=== PATIENT | female | born 1955 | race Caucasian/White ===

== ENCOUNTER → 2016-06-30 | Outpatient (REF) | payer MEDICARE, BC ==
[~2016-06-30] MED LIST: AMIT25TA PO; AMLO10TA2 PO; ASPI81TA45 PO; ASPI81TA85 PO; CALTTAB10 PO; CARA1TAB2 PO; CELE-19 PO; CENTTAB PO; CENTTAB47 PO; CLON-412 PO; DRIS50002 PO; FERR325T3 PO; FIBE0.524 PO; FURO20TA2 PO; GABA300C3 PO; HYDR-3713 PO; HYDR-3719 PO; INSULADS SC; NOVOINJ3 SC; OMEP40CA2 PO; PERC5TAB6 PO; PROA1AER INH; ROPI1TAB PO; SENN8.6T8 PO; SIMV20TA2 PO; TIZA4CAP3 PO; TYLE325T5 PO; VITA-130 PO; [UNRECOGNIZED DRUG - OTHER] INH; elavil PO
[2016-06-30 16:30] LABS: FREE T4 1.06 NG/DL (0.76-1.46)
== END ==
LOC: M LABDRAW1 15:42
PROVIDERS: ATTEND Orthopaedic Surgery
DX: M79.642 Pain in left hand (principal); Z79.899 Other long term (current) drug therapy

== ENCOUNTER → 2016-10-20 | Outpatient (CLI) | payer MEDICARE, BC ==
[~2016-10-20] VITALS: Ht 165.1 cm; Wt 97.5 kg
[~2016-10-20] MED LIST changes: +ASPI1TAB PO; +CALC600T57 PO; +GABA-282 PO; -GABA300C3 PO; +INSUH10VL SC; +INSUHUMDS SC; +LIDOCAINE 2% INJ 100 MG/5 ML SDV (FOR ANES.) As Ordered ONE; +NS 1,000 ML IV ONE; +PROPOFOL 500 MG/50 ML VIAL As Ordered ONE; +TOUJ1.2I SC; +TRUL0.5I SC
--- NOTE | 2016-10-20 11:51 | ROOR ---
Patient Name: Britta Perea Procedure Date: 10/20/2016 11:35 AM Date of : 1955 Age: 61 Room: [facility] Gender: Female Note Status: Finalized Procedure: Upper GI endoscopy Indications: Heartburn Providers: Man Weinberg MD Referring MD: RUTH LOFTON JR, MD Requesting Provider: Medicines: Monitored Anesthesia Care Complications: No immediate complications. Procedure: Pre-Anesthesia Assessment: - The heart rate, respiratory rate, oxygen saturations, blood pressure, adequacy of pulmonary ventilation, and response to care were monitored throughout the procedure. The Endoscope was introduced through the mouth, and advanced to the second part of duodenum. The upper GI endoscopy was accomplished without difficulty. The patient tolerated the procedure well. Findings: The Z-line was irregular and was found 40 cm from the incisors. No other significant abnormalities were identified in a careful examination of the stomach. The exam of the duodenum was otherwise normal. Impression: - Z-line irregular, 40 cm from the incisors. - No specimens collected. - The examination was otherwise normal. Recommendation: - Patient has a contact number available for emergencies. The signs and symptoms of potential delayed complications were discussed with the patient. Return to normal activities tomorrow. Written discharge instructions were provided to the patient. - Discharge patient to home. - Follow an antireflux regimen. - Continue present medications. - Return to referring physician. - The findings and recommendations were discussed with the patient's family. Man Weinberg MD Man Weinberg MD 10/20/2016 11:51:11 AM This report has been signed electronically. Number of Addenda: 0 Note Initiated On: 10/20/2016 11:35 AM Estimated Blood Loss: Estimated blood loss: none.
--- NOTE | 2016-10-20 12:13 | ROOR ---
Patient Name: Britta Perea Procedure Date: 10/20/2016 11:51 AM Date of : 1955 Age: 61 Room: [facility] Gender: Female Note Status: Finalized Procedure: Total Colonoscopy to Cecum + Cold Snare Polypectomy Indications: High risk colon cancer surveillance: Personal history of colonic polyps, Last colonoscopy: 2012 Providers: Man Weinberg MD Referring MD: RUTH LOFTON JR, MD Requesting Provider: Medicines: Monitored Anesthesia Care Complications: No immediate complications. Procedure: Pre-Anesthesia Assessment: - The heart rate, respiratory rate, oxygen saturations, blood pressure, adequacy of pulmonary ventilation, and response to care were monitored throughout the procedure. The Colonoscope was introduced through the anus and advanced to the cecum, identified by appendiceal orifice and ileocecal valve. The colonoscopy was performed without difficulty. The patient tolerated the procedure well. The quality of the bowel preparation was excellent. Findings: The perianal and digital rectal examinations were normal. Non-bleeding internal hemorrhoids were found during retroflexion. The hemorrhoids were small and Grade I (internal hemorrhoids that do not prolapse). Multiple small and large-mouthed diverticula were found in the recto-sigmoid colon, sigmoid colon and descending colon. A medium polyp was found at 60 cm proximal to the anus. The polyp was sessile. The polyp was removed with a cold snare. Resection and retrieval were complete. The exam was otherwise without abnormality on direct and retroflexion views. Impression: - Non-bleeding internal hemorrhoids. - Diverticulosis in the recto-sigmoid colon, in the sigmoid colon and in the descending colon. - One medium polyp at 60 cm proximal to the anus, removed with a cold snare. Resected and retrieved. - The examination was otherwise normal on direct and retroflexion views. - The exam was otherwise normal to the cecum. Recommendation: - Patient has a contact number available for emergencies. The signs and symptoms of potential delayed complications were discussed with the patient. Return to normal activities tomorrow. Written discharge instructions were provided to the patient. - Continue present medications. - Await pathology results. - Telephone GI clinic for pathology results in 1 week. - Repeat colonoscopy in 5 years for surveillance based on pathology results. - Return to referring physician. - The findings and recommendations were discussed with the patient's family. Man Weinberg MD Man Weinberg MD 10/20/2016 12:12:40 PM This report has been signed electronically. Number of Addenda: 0 Note Initiated On: 10/20/2016 11:51 AM Estimated Blood Loss: Estimated blood loss: none.
[2016-10-20 12:30] VITALS: BP 124/82
== END | disposition home or self-care (01) ==
LOC: M OPP 09:56
PROVIDERS: ATTEND Internal Medicine Gastroenterology
DX: Z12.11 Encounter for screening for malignant neoplasm of colon (principal); K64.0 First degree hemorrhoids; K57.30 Diverticulosis of large intestine without perforation or abscess without bleeding; D12.4 Benign neoplasm of descending colon; K21.9 Gastro-esophageal reflux disease without esophagitis; K22.8 Other specified diseases of esophagus; E78.00 Pure hypercholesterolemia, unspecified; I10 Essential (primary) hypertension; E11.9 Type 2 diabetes mellitus without complications; J44.9 Chronic obstructive pulmonary disease, unspecified; E66.9 Obesity, unspecified; K82.9 Disease of gallbladder, unspecified; D64.9 Anemia, unspecified; M19.90 Unspecified osteoarthritis, unspecified site; Z96.9 Presence of functional implant, unspecified; G47.30 Sleep apnea, unspecified; Z79.4 Long term (current) use of insulin; Z79.82 Long term (current) use of aspirin; Z87.891 Personal history of nicotine dependence; Z79.899 Other long term (current) drug therapy; Z88.8 Allergy status to other drugs, medicaments and biological substances; Z88.1 Allergy status to other antibiotic agents

== ENCOUNTER → 2016-11-24 | Outpatient (REF) | payer MEDICARE, BC ==
[~2016-11-24] MED LIST changes: -CARA1TAB2 PO; +CARA1TAB6 PO; -CELE-19 PO; +CELE1CAP4 PO; -LIDOCAINE 2% INJ 100 MG/5 ML SDV (FOR ANES.) As Ordered ONE; -NS 1,000 ML IV ONE; +PERC5TAB12 PO; -PERC5TAB6 PO; -PROA1AER INH; +PROAAER10 INH; -PROPOFOL 500 MG/50 ML VIAL As Ordered ONE; -VITA-130 PO; +VITA500T PO
== END ==
LOC: M LAB REF 18:14
PROVIDERS: ATTEND Internal Medicine
DX: M06.9 Rheumatoid arthritis, unspecified (principal)

== ENCOUNTER → 2017-02-09 | Outpatient (CLI) | payer MEDICARE, BC ==
--- NOTE | 2017-02-09 16:35 | REP ---
PA and lateral chest: Comparison is 04/13/2009. The lung baires are clear. The cardiac size is normal The roxy, mediastinum, and bony thorax are unremarkable. Impression: Negative PA and lateral chest. No interval change. If symptoms persist or worsen, consider CT. Signed by Romain Molina MD 02/09/2017 04:25 P
== END ==
LOC: M WUC 14:49
PROVIDERS: ATTEND Nurse Practitioner Family
DX: R05 Cough (principal)

== ENCOUNTER → 2017-11-04 | Outpatient (CLI) | payer MEDICARE, BC | LOC: M WUC 14:16 | DX: Z01.818 Encounter for other preprocedural examination (principal); M19.041 Primary osteoarthritis, right hand | CPT/HCPCS: 71046 ==

== ENCOUNTER → 2018-04-06 | Outpatient (CLI) | payer MEDICARE, BC | LOC: M WUC 08:51 | DX: R05 Cough (principal) | CPT/HCPCS: 71046 ==

== ENCOUNTER 2018-12-13 10:43 | Day surgery (SDC) | payer MEDICARE, BC ==
[~2018-12-13] VITALS: Ht 162.6 cm; Wt 99.1 kg
[~2018-12-13 10:43] MED LIST changes: -AMLO10TA2 PO; +AMLO10TA5 PO; -ASPI1TAB PO; +ASPI81TA26 PO; -DRIS50002 PO; +DRIS50003 PO; -GABA-282 PO; +GABA-843 PO; +MELO15TA28 PO; +MULTCAP PO; +NS 1,000 ML IV ONE; +SENN1TAB36 PO; -SENN8.6T8 PO; +TIZA4CAP PO; -TIZA4CAP3 PO
[2018-12-13] MEDS ORDERED: PROPOFOL 200 MG/20 ML VIAL As Ordered ONE ×2 (12:33→12:50)
[2018-12-13] MEDS ORDERED: LIDOCAINE 2% INJ 100 MG/5 ML SDV (FOR ANES.) As Ordered ONE (12:33)
--- NOTE | 2018-12-13 12:48 | ROOR ---
Patient Name: Britta Perea Procedure Date: 12/13/2018 12:32 PM Date of : 1955 Age: 63 Room: [facility] Gender: Female Note Status: Finalized Procedure: Upper Endoscopy + Biopsies Indications: Heartburn, Failure to respond to medical treatment, Exclusion of Mejia's esophagus Providers: Man Weinberg MD Referring MD: RUTH LOFTON JR, MD Requesting Provider: Medicines: Monitored Anesthesia Care Complications: No immediate complications. Procedure: Pre-Anesthesia Assessment: - The heart rate, respiratory rate, oxygen saturations, blood pressure, adequacy of pulmonary ventilation, and response to care were monitored throughout the procedure. The Endoscope was introduced through the mouth, and advanced to the second part of duodenum. The upper GI endoscopy was accomplished without difficulty. The patient tolerated the procedure well. Findings: The Z-line was irregular and was found 40 cm from the incisors. Multiple biopsies were obtained with cold forceps for evaluation to rule out Mejia's Esophagus randomly at the gastroesophageal junction. A prior Hugo fundoplication was found at the gastroesophageal junction. This was characterized by healthy appearing mucosa. A small amount of food (residue) was found on the greater curvature of the stomach. Biopsies were taken with a cold forceps in the gastric antrum for Helicobacter pylori testing. The exam of the duodenum was otherwise normal. Impression: - Z-line irregular, 40 cm from the incisors. - A Hugo fundoplication was found, characterized by healthy appearing mucosa. - A small amount of food (residue) in the stomach. - Multiple biopsies were obtained at the gastroesophageal junction. - Biopsies were taken with a cold forceps for Helicobacter pylori testing. - The examination was otherwise normal. Recommendation: - Patient has a contact number available for emergencies. The signs and symptoms of potential delayed complications were discussed with the patient. Return to normal activities tomorrow. Written discharge instructions were provided to the patient. - High fiber diet. - Discharge patient to home. - Follow an antireflux regimen. - Continue present medications. - Await pathology results. - Telephone GI clinic for pathology results in 1 week. - Return to referring physician. - The findings and recommendations were discussed with the patient's family. Man Weinberg MD Man Weinberg MD 12/13/2018 12:48:31 PM Electronically signed by Man Weinberg MD Number of Addenda: 0 Note Initiated On: 12/13/2018 12:32 PM Estimated Blood Loss: Estimated blood loss: none.
[2018-12-13 13:05] VITALS: BP 124/69
== END 2018-12-13 13:30 | disposition home or self-care (01) ==
LOC: M OPP 10:43
PROVIDERS: ATTEND Internal Medicine Gastroenterology
DX: K22.8 Other specified diseases of esophagus (principal); R12 Heartburn; Z98.890 Other specified postprocedural states

== ENCOUNTER → 2019-02-28 | Outpatient (CLI) | payer MEDICARE, BC ==
[~2019-02-28] MED LIST changes: -NS 1,000 ML IV ONE; -OMEP40CA2 PO; +OMEP40CA97 PO
--- NOTE | 2019-02-28 10:42 | REP ---
Two-view chest: 02/28/2019. Indication: Chest pain. Comparison: 04/06/2019. Findings: The lungs are clear. There is no pleural effusion or pneumothorax. The cardiac silhouette is unremarkable. Impression: Clear lungs. Electronically Signed by Schuyler Shi DO 02/28/2019 10:35 A
== END ==
LOC: M WUC 10:13
PROVIDERS: ATTEND Internal Medicine
DX: R07.9 Chest pain, unspecified (principal)

== ENCOUNTER → 2019-03-04 | Outpatient (REF) | payer MEDICARE, BC | LOC: M LAB REF 13:16 | PROVIDERS: ATTEND Nurse Practitioner | DX: L02.213 Cutaneous abscess of chest wall (principal) ==

== ENCOUNTER → 2019-03-22 | Outpatient (REF) | payer MEDICARE, BC ==
[~2019-03-22] MED LIST changes: -SIMV20TA2 PO; +SIMV20TA22 PO
== END ==
LOC: M LAB REF 17:29
PROVIDERS: ATTEND Dermatology
DX: L72.0 Epidermal cyst (principal)

== ENCOUNTER → 2019-06-30 | Outpatient (CLI) | payer MEDICARE, BC ==
[~2019-06-30] MED LIST changes: +ISOVUE-370 76% 100ML VIAL (Q9967) As Ordered ONE; +METHACHOLINE KIT (J7674) INH ONE; -ROPI1TAB PO; +ROPI1TAB3 PO
--- NOTE | 2019-06-30 10:10 | PFTRPT ---
Visit Date: 06/30/2019 Referring Doctor: Bernadette Gottlieb Height: 65.00 Inches Weight: 218.00 Lbs BSA: 2.05 Diagnosis: R05 Excellent technical quality. Under protocol, methacholine was administered. At a dose of 2.5 mg or 13.875 CDUs, a 22% decline in the FEV1 was noted. PC of 1.64 is significant. Flow rates did return to baseline post bronchodilator administration. IMPRESSION: Positive methacholine challenge study. MTDD
--- NOTE | 2019-06-30 10:26 | REP ---
Clinical: Follow up abnormal lung findings. Technique: Axial contrast enhanced images from the thoracic inlet to the upper abdomen with coronal and sagittal re-formations. Comparison: 08/13/2018. Findings: The small left upper lobe pulmonary cyst measuring roughly 11 mm likely represent sequelae from prior inflammatory process is unchanged. The structure appears chronic and without significant mural nodule/soft tissue. The remainder of lung baires are well-aerated and clear. No further abnormalities appreciated. No effusion. No pneumothorax. No consolidation, nodule or mass. No significant adenopathy noted. Further evaluation of the mediastinum demonstrates mild atherosclerotic changes to the thoracic aorta without aneurysm or dissection. Atherosclerotic changes to the coronary arteries noted along with epicardial calcifications which remains chronic/stable. Surrounding musculoskeletal structures are intact. Limited upper abdomen demonstrates hepatic steatosis along with stable left adrenal adenoma. Impression: 1. Small cystic area in the left upper lobe remains stable and likely represents chronic change related to prior inflammatory process. 2. No acute mediastinal or pleuroparenchymal process appreciated. 3. Hepatic steatosis. Electronically Signed by Hero Hoff MD 06/30/2019 10:17 A
== END ==
LOC: M RAD 08:49
PROVIDERS: ATTEND Nurse Practitioner Adult Health
DX: R05 Cough (principal)
CPT/HCPCS: 71260; 94070; 95070; J7674; Q9967

== ENCOUNTER → 2019-09-27 | Outpatient (REF) | payer MEDICARE, BC, OTHER ==
[~2019-09-27] MED LIST changes: -ISOVUE-370 76% 100ML VIAL (Q9967) As Ordered ONE; -METHACHOLINE KIT (J7674) INH ONE; +VITA-243 PO; -VITA500T PO
[2019-09-27 13:28] LABS: BASOPHILS 1 % (0-1); EOSINOPHILS 6 % (0-3); LYMPHOCYTES 19 % (16-44); MONOCYTES 2 % (0-5); NEUTROPHILS 72 % (28-66); PLATELET ESTIMATE INCREASED (NORMAL)
== END ==
LOC: M LAB REF 12:30
PROVIDERS: ATTEND Internal Medicine
DX: D72.828 Other elevated white blood cell count (principal)

== ENCOUNTER → 2019-12-15 | Outpatient (CLI) | payer MEDICARE, BC ==
[~2019-12-15] MED LIST changes: -AMLO10TA5 PO; +AMLO1TAB25 PO; -ASPI81TA85 PO; +ASPI81TA86 PO
== END ==
LOC: M LABSMTC 12:20
PROVIDERS: ATTEND Orthopaedic Surgery
DX: Z11.59 Encounter for screening for other viral diseases (principal)
CPT/HCPCS: C9803; U0003

== ENCOUNTER → 2019-12-16 | Outpatient (REF) | payer MEDICARE, BC, OTHER ==
[2020-01-14 01:41] LABS: ATYPICAL LYMPH 1 % (0-5); BASOPHILS 1 % (0-1); EOSINOPHILS 1 % (0-3); GIANT PLATELETS 1+; LYMPHOCYTES 29 % (16-44); MONOCYTES 2 % (0-5); NEUTROPHILS 66 % (28-66); PLATELET ESTIMATE INCREASED (NORMAL)
== END ==
LOC: M LAB REF 13:06
PROVIDERS: ATTEND Internal Medicine
DX: D72.829 Elevated white blood cell count, unspecified (principal)

== ENCOUNTER → 2020-03-16 | Outpatient (CLI) | payer MEDICARE, BC, OTHER ==
[2020-03-16 15:38] LABS: HEMATOCRIT 46.7 % (36.0-47.0); HEMOGLOBIN 14.1 g/dl (12.0-15.5); MEAN CORPUSCULAR HEMOGLOBIN 25.1 pg (27.0-33.0); MEAN CORPUSCULAR HGB CONC 30.2 g/dl (32.0-36.5); MEAN CORPUSCULAR VOLUME 83.2 fl (80.0-96.0); PLATELET COUNT, AUTOMATED 658 10^3/uL (150-450); RED BLOOD COUNT 5.61 10^6/uL (4.00-5.40)
[2020-03-16 15:40] LABS: C REACTIVE PROTEIN QUANTITATIV 1.71 MG/DL (0.00-0.30); RHEUMATOID FACTOR QUANT < 10.0 IU/ML (<15.0)
[2020-03-16 15:50] LABS: WHITE BLOOD COUNT 20.6 10^3/uL (4.0-10.0)
[2020-03-16 16:17] LABS: ERYTHROCYTE SEDIMENTATION RATE 12 mm/hr (0-30)
[2020-03-16 18:01] LABS: BASOPHILS 1 % (0-1); EOSINOPHILS 3 % (0-3); LYMPHOCYTES 24 % (16-44); MONOCYTES 8 % (0-5); NEUTROPHILS 63 % (28-66)
[2020-03-16 18:02] LABS: PLATELET ESTIMATE INCREASED (NORMAL)
[2020-03-16 18:03] LABS: HYPOCHROMASIA 1+
[2020-03-19 19:11] LABS: ANTINUCLEAR ANTIBODIES DIRECT Negative (Negative); Lyme Disease IgG/IgM Antibodie <0.91 ISR (0.00-0.90); Lyme Disease IgM Ab Quantitati <0.80 index (0.00-0.79)
== END ==
LOC: M PLALAB 14:05
PROVIDERS: ATTEND Orthopaedic Surgery
DX: Z47.89 Encounter for other orthopedic aftercare (principal)

== ENCOUNTER → 2020-05-14 | Outpatient (REF) | payer MEDICARE, BC, OTHER ==
[2020-05-14 19:41] LABS: ATYPICAL LYMPH 7 % (0-5); BASOPHILS 1 % (0-1); EOSINOPHILS 2 % (0-3); LYMPHOCYTES 33 % (16-44); NEUTROPHILS 57 % (28-66); PLATELET CLUMPS SMALL AMT; PLATELET ESTIMATE NORMAL (NORMAL)
[2020-05-14 19:42] LABS: ANISOCYTOSIS 1+; OVALOCYTES 1+; POLYCHROMASIA 1+
== END ==
LOC: M LAB REF 16:30
PROVIDERS: ATTEND Physician Assistant Medical
DX: D72.829 Elevated white blood cell count, unspecified (principal)

== ENCOUNTER → 2020-06-06 | Outpatient (CLI) | payer SELFPAY ==
[~2020-06-06] MED LIST changes: -AMIT25TA PO; +AMIT25TA17 PO; +GABA-282 PO; -GABA-843 PO
== END ==
LOC: M LABSMTC 13:37
PROVIDERS: ATTEND Pediatrics
DX: Z20.822 Contact with and (suspected) exposure to COVID-19 (principal)

== ENCOUNTER → 2020-07-03 | Outpatient (CLI) | payer SELFPAY, BC, OTHER | LOC: M LABSMTC 09:33 | PROVIDERS: ATTEND Pediatrics | DX: Z11.52 Encounter for screening for COVID-19 (principal) ==

== ENCOUNTER → 2020-07-06 | Outpatient (REF) | payer MEDICARE, BC, OTHER ==
[2020-07-06 17:39] LABS: ATYPICAL LYMPH 5 % (0-5); BASOPHILS 1 % (0-1); EOSINOPHILS 8 % (0-3); LYMPHOCYTES 35 % (16-44); MONOCYTES 9 % (0-5); NEUTROPHILS 42 % (28-66); PLATELET ESTIMATE INCREASED (NORMAL)
[2020-07-06 17:44] LABS: MICROCYTOSIS 1+
== END ==
LOC: M LAB REF 16:42
PROVIDERS: ATTEND Internal Medicine
DX: D72.829 Elevated white blood cell count, unspecified (principal); E11.21 Type 2 diabetes mellitus with diabetic nephropathy; E11.65 Type 2 diabetes mellitus with hyperglycemia

== ENCOUNTER → 2020-07-11 | Outpatient (CLI) | payer MEDICARE, BC ==
--- NOTE | 2020-07-11 10:31 | REP ---
INDICATION: ABNORMAL FINDING OF LUNG FIELD COMPARISON: 06/30/2019, 08/13/2018 TECHNIQUE: Axial noncontrast images from the thoracic inlet to the upper abdomen with coronal and sagittal reformations. This CT examination was performed using the following dose reduction techniques: Automated exposure control, adjustment of mA and/or kv according to the patient's size, and use of iterative reconstruction technique. FINDINGS: The bilateral lung baires are relatively well aerated and essentially clear without consolidation, significant nodule, or mass lesion. A small chronic cavitary lesion in the left upper lobe measures roughly 12 mm and remains stable-consistent with small chronic postinflammatory pneumatocele. Very small scattered non solid ground-glass densities measure up to 6 mm and are similar to prior examination without increase in size, conspicuity, or number. No effusion. No pneumothorax. Tracheobronchial tree is patent. No significant adenopathy. Mediastinum demonstrates stable atherosclerotic changes to the thoracic aorta and coronary arteries without aortic aneurysm or cardiomegaly. No pericardial effusion. Surrounding musculoskeletal structures are intact and without acute osseous abnormality. IMPRESSION: Stable chronic benign appearing changes. No acute mediastinal or pleuroparenchymal process appreciated <Electronically signed by Hero Hoff > 07/11/20 [id number]
== END ==
LOC: M RAD 09:31
PROVIDERS: ATTEND Nurse Practitioner Adult Health
DX: R91.8 Other nonspecific abnormal finding of lung field (principal)

== ENCOUNTER → 2020-08-02 | Outpatient (REF) | payer MEDICARE, BC | LOC: M LAB REF 11:14 | PROVIDERS: ATTEND Internal Medicine | DX: E11.21 Type 2 diabetes mellitus with diabetic nephropathy (principal); E11.65 Type 2 diabetes mellitus with hyperglycemia ==

== ENCOUNTER → 2020-11-01 | Outpatient (REF) | payer MEDICARE, BC ==
[~2020-11-01] MED LIST changes: +OMEP40CA4 PO; -OMEP40CA97 PO
== END ==
LOC: M LAB REF 12:23
PROVIDERS: ATTEND Internal Medicine
DX: E11.21 Type 2 diabetes mellitus with diabetic nephropathy (principal)

== ENCOUNTER → 2020-11-02 | Outpatient (CLI) | payer MEDICARE, BC ==
--- NOTE | 2020-11-02 10:03 | REPMRS ---
Patient History The patient states she has not had a clinical breast exam in over a year. Patient is postmenopausal. No known family history of cancer. Took hormonal contraceptives for 5 years. Moderna vaccine 07/20/20 left arm. 08/20/20 left arm. Patient states no breast complaints today. Patient has signed MRS History Sheet. Digital Woman Screen Mammo: November 02, 2020 - Exam #: [id number] Bilateral CC and MLO view(s) were taken. Technologist: RT Amee Prior study comparison: October 18, 2019, bilateral digital mammo screening bilat, performed at [facility]. July 11, 2018, bilateral digital mammo screening bilat, performed at [facility]. July 20, 2017, bilateral digital mammo screening bilat, performed at [facility]. FINDINGS: There are scattered fibroglandular densities. The Volpara volumetric breast density category is:B. There has been no change in the appearance of the mammogram from the prior studies. There is a mild amount of scattered fibroglandular density which is fairly symmetric. There is no interval development of dominant mass, architectural distortion, or grouped microcalcification suggestive of malignancy. 3-D tomosynthesis shows no additional findings. Assessment: BI-RADS/ACR category 1 mammogram. Negative Mammogram. Recommendation Routine screening mammogram of both breasts in 1 year (for women over age 40). This patient's [facility] Lifetime Breast Cancer Risk is estimated at 4.4 %. This mammogram was interpreted with the aid of an FDA-approved computer-aided dectection system. Electronically Signed By: Gonzalo Trimble MD 11/02/20 [id number]
--- NOTE | 2020-11-02 10:52 | DEXAMM ---
INDICATION: OSTEOPOROSIS. COMPARISON: Comparison studies are from August 13, 2018 and July 06, 2015.. TECHNIQUE: Bone density was measured using dual-energy x-ray absorptionmetry (DEXA). FINDINGS: AP SPINE L1-L4 BMD 1.219 g/cm2 Young Adult T-Score 0.2 Age Matched Z-Score 21.7. LT FEMUR, TOTAL BMD 0.987 g/cm2 Young Adult T-Score -0.2 Age Matched Z-Score 1.0. LT NECK BMD 0.939 g/cm2 Young Adult T-Score -0.7 Age Matched Z-Score 0.7. RT FEMUR, TOTAL BMD 0.946 g/cm2 Young Adult T-Score -0.5 Age Matched Z-Score 0.7. RT NECK BMD 0.964 g/cm2 Young Adult T-Score -0.5 Age Matched Z-Score 0.9. IMPRESSION: There is normal bone density of the spine. There is normal bone density of the left hip. There is normal bone density of the right hip. The density of the spine has increased 11.4% since the initial exam on July 06, 2015. The density of the spine increased 11.5% since most recent exam on August 13, 2018. The density of the left hip has increased 4.9% since initial exam on July 06, 2015. The density of the left hip has decreased 1.7% since most recent exam on June 15, 2018. The density of the right hip has increased 1.1% since the initial exam on July 06, 2015. The density of the right hip has decreased 14.1% since the most recent exam on August 13, 2018. FOLLOW-UP: Recommendation for the next bone density exam: 2 years. <Electronically signed by Gonzalo Trimble > 11/02/20 [id number]
== END ==
LOC: M WHC 08:29
PROVIDERS: ATTEND Internal Medicine
DX: Z12.31 Encounter for screening mammogram for malignant neoplasm of breast (principal); Z13.820 Encounter for screening for osteoporosis; Z78.0 Asymptomatic menopausal state

== ENCOUNTER → 2021-04-01 | Outpatient (REF) | payer MEDICARE, BC | LOC: M LAB REF 13:49 | PROVIDERS: ATTEND Physician Assistant | DX: L72.9 Follicular cyst of the skin and subcutaneous tissue, unspecified (principal) | CPT/HCPCS: 87070; 87077; 87186; G0463 ==

== ENCOUNTER → 2021-04-22 | Outpatient (REF) | payer MEDICARE, BC ==
[2021-04-22 19:47] LABS: ATYPICAL LYMPH 3 % (0-5); BASOPHILS 2 % (0-1); EOSINOPHILS 6 % (0-3); LYMPHOCYTES 32 % (16-44); MONOCYTES 9 % (0-5); NEUTROPHILS 48 % (28-66)
[2021-04-22 19:48] LABS: ANISOCYTOSIS 1+; PLATELET ESTIMATE INCREASED (NORMAL)
[2021-04-22 19:49] LABS: MICROCYTOSIS 1+
== END ==
LOC: M LAB REF 16:31
PROVIDERS: ATTEND Internal Medicine
DX: D72.829 Elevated white blood cell count, unspecified (principal)

== ENCOUNTER → 2021-05-10 | Outpatient (REF) | LOC: M LABSMTC 10:05 | PROVIDERS: ATTEND Pediatrics | DX: Z11.52 Encounter for screening for COVID-19 (principal); Z20.822 Contact with and (suspected) exposure to COVID-19 ==

== ENCOUNTER → 2021-07-24 | Outpatient (REF) | payer MEDICARE, BC | LOC: M LAB REF 12:12 | PROVIDERS: ATTEND Internal Medicine | DX: Z22.322 Carrier or suspected carrier of Methicillin resistant Staphylococcus aureus (principal) ==

== ENCOUNTER → 2021-08-09 | Outpatient (REF) | payer MEDICARE, BC ==
[2021-08-09 19:17] LABS: BASOPHILS 2 % (0-1); EOSINOPHILS 6 % (0-3); LYMPHOCYTES 33 % (16-44); MONOCYTES 3 % (0-5); NEUTROPHILS 56 % (28-66)
[2021-08-09 19:18] LABS: ANISOCYTOSIS 1+; MICROCYTOSIS 1+; PLATELET ESTIMATE INCREASED (NORMAL); TARGET CELLS 1+
== END ==
LOC: M LAB REF 16:21
PROVIDERS: ATTEND Internal Medicine
DX: E11.21 Type 2 diabetes mellitus with diabetic nephropathy (principal); D72.829 Elevated white blood cell count, unspecified

== ENCOUNTER → 2021-08-26 | Outpatient (CLI) | payer MEDICARE, BC | LOC: M WUC 13:58 | PROVIDERS: ATTEND Internal Medicine | DX: R10.9 Unspecified abdominal pain (principal); R11.2 Nausea with vomiting, unspecified ==

== ENCOUNTER → 2021-09-13 | Outpatient (REF) | payer MEDICARE, BC ==
[2021-09-13 20:14] LABS: ATYPICAL LYMPH 2 % (0-5); BASOPHILS 2 % (0-1); EOSINOPHILS 2 % (0-3); LYMPHOCYTES 28 % (16-44); MONOCYTES 3 % (0-5); NEUTROPHILS 63 % (28-66); PLATELET ESTIMATE INCREASED (NORMAL)
[2021-09-13 20:16] LABS: TOXIC GRANULATION 1+
[2021-09-13 20:17] LABS: MICROCYTOSIS 2+
== END ==
LOC: M LAB REF 16:25
PROVIDERS: ATTEND Physician Assistant Medical
DX: D72.9 Disorder of white blood cells, unspecified (principal)

== ENCOUNTER → 2021-09-30 | Outpatient (CLI) | payer MEDICARE, BC ==
[~2021-09-30] MED LIST changes: +GASTROGRAFIN SOLUTION 30ML (Q9963) As Ordered ONE; +ISOVUE-370 76% 100ML VIAL As Ordered ONE
== END ==
LOC: M RAD 14:09
PROVIDERS: ATTEND Physician Assistant Medical
DX: R11.0 Nausea (principal); K76.0 Fatty (change of) liver, not elsewhere classified; N28.1 Cyst of kidney, acquired
CPT/HCPCS: 74178; Q9963; Q9967

== ENCOUNTER → 2021-10-11 | Outpatient (REF) | payer MEDICARE, BC ==
[~2021-10-11] MED LIST changes: -GASTROGRAFIN SOLUTION 30ML (Q9963) As Ordered ONE; -ISOVUE-370 76% 100ML VIAL As Ordered ONE
[2021-10-11 18:56] LABS: TOTAL PROTEIN 7.9 GM/DL (6.4-8.2)
[2021-10-15 09:47] LABS: ALBUMIN 4.08 GM/DL (3.29-5.55); ALBUMIN % 51.7 % (55.8-66.1); ALPHA-1-GLOBULIN % 4.1 % (2.9-4.9); ALPHA-1-GLOBULINS 0.32 GM/DL (0.17-0.41); ALPHA-2-GLOBULINS 1.11 GM/DL (0.42-0.99); ALPHA-2-GLOBULINS % 14.1 % (7.1-11.8); BETA-1-GLOBULINS 0.62 GM/DL (0.28-0.60); BETA-1-GLOBULINS % 7.8 % (4.7-7.2); BETA-2-GLOBULINS 0.48 GM/DL (0.19-0.55); BETA-2-GLOBULINS % 6.1 % (3.2-6.5); GAMMA GLOBULIN % 16.2 % (11.1-18.8); GAMMA GLOBULINS 1.28 GM/DL (0.65-1.58)
== END ==
LOC: M LAB REF 17:07
PROVIDERS: ATTEND Physician Assistant Medical
DX: R76.8 Other specified abnormal immunological findings in serum (principal)

== ENCOUNTER → 2021-10-23 | Outpatient (CLI) | payer MEDICARE, BC | LOC: M PLAIMG 06:59 | PROVIDERS: ATTEND Physician Assistant Medical | DX: S34.114A Complete lesion of L4 level of lumbar spinal cord, initial encounter (principal) ==

== ENCOUNTER → 2021-11-07 | Outpatient (CLI) | payer MEDICARE, BC | LOC: M WHC 06:40 | PROVIDERS: ATTEND Internal Medicine | DX: Z12.31 Encounter for screening mammogram for malignant neoplasm of breast (principal) ==

== ENCOUNTER → 2021-11-07 | Outpatient (CLI) | payer MEDICARE, BC | LOC: M RAD 13:42 | PROVIDERS: ATTEND Physician Assistant Medical | DX: Z12.31 Encounter for screening mammogram for malignant neoplasm of breast (principal); N28.1 Cyst of kidney, acquired; N83.201 Unspecified ovarian cyst, right side; D41.01 Neoplasm of uncertain behavior of right kidney ==

== ENCOUNTER → 2021-11-27 | Outpatient (REF) | payer MEDICARE, BC | LOC: M LAB REF 12:13 | PROVIDERS: ATTEND Internal Medicine | DX: M89.9 Disorder of bone, unspecified (principal); E11.21 Type 2 diabetes mellitus with diabetic nephropathy ==

== ENCOUNTER → 2021-12-02 | Outpatient (REF) | payer MEDICARE, BC | LOC: M LAB REF 11:28 | PROVIDERS: ATTEND Internal Medicine | DX: N28.1 Cyst of kidney, acquired (principal) ==

== ENCOUNTER → 2021-12-03 | Outpatient (REF) | payer MEDICARE, BC | LOC: M LAB REF 12:07 | PROVIDERS: ATTEND Internal Medicine | DX: N28.1 Cyst of kidney, acquired (principal) ==

== ENCOUNTER → 2021-12-04 | Outpatient (REF) | payer MEDICARE, BC | LOC: M LAB REF 16:24 | PROVIDERS: ATTEND Internal Medicine | DX: M89.9 Disorder of bone, unspecified (principal); N28.1 Cyst of kidney, acquired ==

== ENCOUNTER → 2021-12-10 | Outpatient (REF) | payer MEDICARE, BC ==
[2021-12-10 13:33] LABS: APPEARANCE, URINE CLEAR (CLEAR); BACTERIA, URINE AUTO NEGATIVE (NEGATIVE); BILIRUBIN, URINE AUTO NEGATIVE (NEGATIVE); BLOOD, URINE BLOOD NEGATIVE (NEGATIVE); COLOR, URINE YELLOW (YELLOW); GLUCOSE, URINE (UA) AUTO 3+ mg/dL (NEGATIVE); KETONE, URINE AUTO NEGATIVE (NEGATIVE); LEUKOCYTE ESTERASE, URINE AUTO NEGATIVE (NEGATIVE); NITRITE, URINE AUTO NEGATIVE (NEGATIVE); PROTEIN, URINE AUTO NEGATIVE (NEGATIVE); RBC, URINE AUTO 1 /HPF (0-3); SPECIFIC GRAVITY URINE AUTO 1.026 (1.002-1.035); SQUAMOUS EPITHELIAL CELL UR AU 1 /HPF (0-6); UROBILINOGEN, URINE AUTO 0.2 mg/dL (0.0-2.0); WBC, URINE AUTO 0 /HPF (0-3)
== END ==
LOC: M SMT 12:51
PROVIDERS: ATTEND Physician Assistant
DX: R39.89 Other symptoms and signs involving the genitourinary system (principal)

== ENCOUNTER 2021-12-22 07:58 | Emergency (ER) | payer MEDICARE, BC ==
[~2021-12-22] VITALS: Ht 162.6 cm; Wt 91.4 kg
[2021-12-22 10:47] LABS: MEAN CORPUSCULAR HEMOGLOBIN 21.5 pg (27.0-33.0); MEAN CORPUSCULAR HGB CONC 29.5 g/dl (32.0-36.5); MEAN CORPUSCULAR VOLUME 72.6 fl (80.0-96.0); PLATELET COUNT, AUTOMATED 726 10^3/uL (150-450); RED BLOOD COUNT 6.06 10^6/uL (4.00-5.40); WHITE BLOOD COUNT 27.3 10^3/uL (4.0-10.0)
[2021-12-22 11:11] LABS: ERYTHROCYTE SEDIMENTATION RATE 18 mm/hr (0-30)
[2021-12-22 11:15] LABS: ATYPICAL LYMPH 4 % (0-5); BASOPHILS 1 % (0-1); EOSINOPHILS 1 % (0-3); LYMPHOCYTES 17 % (16-44); MONOCYTES 9 % (0-5); NEUTROPHILS 67 % (28-66)
[2021-12-22 11:16] LABS: PLATELET CLUMPS SMALL AMT; PLATELET ESTIMATE INCREASED (NORMAL)
[2021-12-22 11:17] LABS: ANISOCYTOSIS 2+; OVALOCYTES 1+; POIKILOCYTOSIS 1+
[2021-12-22 11:18] LABS: BLOOD UREA NITROGEN 19 MG/DL (7-18); C REACTIVE PROTEIN QUANTITATIV 2.29 MG/DL (0.00-0.30); CALCIUM LEVEL 9.5 MG/DL (8.8-10.2); CARBON DIOXIDE LEVEL 28 MEQ/L (21-32); CHLORIDE LEVEL 106 MEQ/L (98-107); CREATININE FOR GFR 0.65 MG/DL (0.55-1.30); GLOMERULAR FILTRATION RATE > 60.0 (>45); GLUCOSE, FASTING 97 MG/DL (70-100); POLYCHROMASIA 1+; POTASSIUM SERUM 4.6 MEQ/L (3.5-5.1); SODIUM LEVEL 139 MEQ/L (136-145)
[2021-12-22] MEDS ORDERED: NORCO, ANEXSIA 5/325MG TABLET (HYDROcodone/ACETAMINOPHEN) PO ONE (12:45)
[2021-12-22] MEDS ORDERED: HYDR-3713 PO (14:15)
[2021-12-22 14:28] VITALS: BP 145/65
== END 2021-12-22 14:29 | disposition home or self-care (01) ==
LOC: M ED 07:58
DX: M79.661 Pain in right lower leg (principal); E11.9 Type 2 diabetes mellitus without complications; I10 Essential (primary) hypertension; G47.33 Obstructive sleep apnea (adult) (pediatric); K21.9 Gastro-esophageal reflux disease without esophagitis; G89.29 Other chronic pain; Z86.718 Personal history of other venous thrombosis and embolism; Z88.1 Allergy status to other antibiotic agents; Z79.899 Other long term (current) drug therapy; Z79.82 Long term (current) use of aspirin; Z79.4 Long term (current) use of insulin

== ENCOUNTER → 2022-02-19 | Outpatient (CLI) | payer MEDICARE, BC ==
[~2022-02-19] MED LIST changes: +ALBU8.5H INH; +MULT-90 PO; +ONDA-83 PO; +TRAZ-186 PO
== END ==
LOC: M WHC 08:20
PROVIDERS: ATTEND Specialist
DX: N83.201 Unspecified ovarian cyst, right side (principal)

== ENCOUNTER → 2022-03-04 | Outpatient (REF) | payer MEDICARE, BC ==
[2022-03-06 14:08] LABS: FRUCTOSAMINE 309 umol/L (0-285); SSA SJOGRENS A <0.2 AI (0.0-0.9); SSB SJOGRENS B <0.2 AI (0.0-0.9)
== END ==
LOC: M LAB REF 16:11
PROVIDERS: ATTEND Internal Medicine
DX: H04.129 Dry eye syndrome of unspecified lacrimal gland (principal); E11.9 Type 2 diabetes mellitus without complications

== ENCOUNTER → 2022-03-24 | Outpatient (CLI) | payer MEDICARE, BC | LOC: M PLARAD 07:32 | PROVIDERS: ATTEND Internal Medicine Medical Oncology | DX: C48.0 Malignant neoplasm of retroperitoneum (principal) | CPT/HCPCS: 78815; A9552 ==

== ENCOUNTER → 2022-05-18 | Outpatient (CLI) | payer MEDICARE, BC ==
[~2022-05-18] MED LIST changes: +AMMO12CR7 TOP; +CELE1CAP7 PO; +CLIN1GEL22 TOP; +CVS500CA5 PO; +DOCU100C16 PO; +ERGO500029 PO; +FAMO40TA3 PO; +HUMA100I5 SC; +HYDR500C3 PO; +JARD1TAB PO; +MAGN400T2 PO; +MONT10TA97 PO; +NITR2OI TOP; +OXYB5TAB10 PO; +POTA10CA33 PO; +SUCR1TAB56 PO; +SYMB16INH INH; +TRAZ-252 PO
== END ==
LOC: M LABSMTC 10:25
PROVIDERS: ATTEND Internal Medicine Gastroenterology
DX: Z01.812 Encounter for preprocedural laboratory examination (principal); Z20.822 Contact with and (suspected) exposure to COVID-19

== ENCOUNTER 2022-05-21 06:44 | Day surgery (SDC) | payer MEDICARE, BC ==
[~2022-05-21] VITALS: Ht 160 cm; Wt 88.0 kg
[~2022-05-21 06:44] MED LIST changes: +NS 1,000 ML IV ONE
[2022-05-21] MEDS ORDERED: LIDOCAINE 2% 100MG/5ML SDV (FOR ANES.) As Ordered ONE (07:54)
[2022-05-21] MEDS ORDERED: fentaNYL 100 MCG/2 ML INJECTION As Ordered ONE (07:54)
[2022-05-21] MEDS ORDERED: propofoL 200 MG/20 ML VIAL As Ordered ONE (07:54)
[2022-05-21 08:48] VITALS: BP 137/63
== END 2022-05-21 08:59 | disposition home or self-care (01) ==
LOC: M OPP 06:44
PROVIDERS: ATTEND Internal Medicine Gastroenterology
DX: K64.0 First degree hemorrhoids (principal); K57.30 Diverticulosis of large intestine without perforation or abscess without bleeding; K22.70 Barrett's esophagus without dysplasia; I10 Essential (primary) hypertension; E78.5 Hyperlipidemia, unspecified; E10.9 Type 1 diabetes mellitus without complications; K21.9 Gastro-esophageal reflux disease without esophagitis; M19.90 Unspecified osteoarthritis, unspecified site; J45.909 Unspecified asthma, uncomplicated; G47.30 Sleep apnea, unspecified; Z87.891 Personal history of nicotine dependence; Z88.1 Allergy status to other antibiotic agents; Z79.4 Long term (current) use of insulin; Z79.82 Long term (current) use of aspirin; Z79.84 Long term (current) use of oral hypoglycemic drugs; Z79.899 Other long term (current) drug therapy

== ENCOUNTER → 2022-06-06 | Outpatient (REF) | payer MEDICARE, BC ==
[~2022-06-06] MED LIST changes: -NS 1,000 ML IV ONE
== END ==
LOC: M LAB REF 12:22
PROVIDERS: ATTEND Internal Medicine
DX: E11.40 Type 2 diabetes mellitus with diabetic neuropathy, unspecified (principal)

== ENCOUNTER → 2022-06-12 | Outpatient (REF) | payer MEDICARE, BC | LOC: M LAB REF 08:47 | PROVIDERS: ATTEND Internal Medicine | DX: D72.829 Elevated white blood cell count, unspecified (principal); D48.3 Neoplasm of uncertain behavior of retroperitoneum ==

== ENCOUNTER → 2022-07-23 | Outpatient (CLI) | payer MEDICARE, BC ==
[~2022-07-23] MED LIST changes: +BACL10TA2; +GASTROGRAFIN SOLUTION 30ML As Ordered ONE; +ISOVUE-370 76% 100ML VIAL As Ordered ONE
== END ==
LOC: M RAD 10:46
PROVIDERS: ATTEND Internal Medicine
DX: D14.30 Benign neoplasm of unspecified bronchus and lung (principal); R91.1 Solitary pulmonary nodule; M51.36 Other intervertebral disc degeneration, lumbar region
CPT/HCPCS: 71260; 74177; Q9963; Q9967

== ENCOUNTER → 2022-10-01 | Outpatient (REF) | payer MEDICARE, BC ==
[~2022-10-01] MED LIST changes: -BACL10TA2; -GASTROGRAFIN SOLUTION 30ML As Ordered ONE; -ISOVUE-370 76% 100ML VIAL As Ordered ONE
== END ==
LOC: M LAB REF 12:35
PROVIDERS: ATTEND Internal Medicine
DX: E11.40 Type 2 diabetes mellitus with diabetic neuropathy, unspecified (principal)

== ENCOUNTER → 2022-11-04 | Outpatient (REF) | payer MEDICARE, BC ==
[~2022-11-04] MED LIST changes: +BACL10TA2; -POTA10CA33 PO; +POTA10CA60 PO
== END ==
LOC: M LAB REF 16:39
PROVIDERS: ATTEND Internal Medicine
DX: M48.062 Spinal stenosis, lumbar region with neurogenic claudication (principal)

== ENCOUNTER → 2022-11-05 | Outpatient (CLI) | payer MEDICARE, BC | LOC: M RAD 12:04 | PROVIDERS: ATTEND Nurse Practitioner | DX: M79.604 Pain in right leg (principal) ==

== ENCOUNTER → 2022-12-11 | Outpatient (REF) | payer MEDICARE, BC ==
[~2022-12-11] MED LIST changes: -AMIT25TA17 PO; +AMIT25TA19 PO; -ROPI1TAB3 PO; +ROPI1TAB73 PO
[2022-12-11 11:54] LABS: INR 0.91; PROTHROMBIN TIME 12.5 SECONDS (12.5-14.5)
[2022-12-11 11:56] LABS: PARTIAL THROMBOPLASTIN TIME 29.9 SECONDS (24.8-34.2)
== END ==
LOC: M LAB REF 11:40
PROVIDERS: ATTEND Internal Medicine
DX: Z01.810 Encounter for preprocedural cardiovascular examination (principal)

== ENCOUNTER → 2022-12-29 | Outpatient (REF) | payer MEDICARE, BC | LOC: M LAB REF 16:39 | PROVIDERS: ATTEND Internal Medicine | DX: E11.40 Type 2 diabetes mellitus with diabetic neuropathy, unspecified (principal) ==

== ENCOUNTER → 2023-03-24 | Outpatient (REF) | payer MEDICARE, BC ==
[~2023-03-24] MED LIST changes: -CELE1CAP7 PO; +CELE1CAP99 PO; +METH-1164; -OXYB5TAB10 PO; +OXYB5TAB11 PO; +PREG150C2
[2023-03-24 17:31] LABS: APPEARANCE, URINE HAZY (CLEAR); BACTERIA, URINE AUTO NEGATIVE (NEGATIVE); BILIRUBIN, URINE AUTO NEGATIVE (NEGATIVE); BLOOD, URINE BLOOD NEGATIVE (NEGATIVE); COLOR, URINE YELLOW (YELLOW); GLUCOSE, URINE (UA) AUTO 3+ mg/dL (NEGATIVE); KETONE, URINE AUTO NEGATIVE (NEGATIVE); LEUKOCYTE ESTERASE, URINE AUTO TRACE (NEGATIVE); NITRITE, URINE AUTO NEGATIVE (NEGATIVE); PROTEIN, URINE AUTO NEGATIVE (NEGATIVE); RBC, URINE AUTO 1 /HPF (0-3); SPECIFIC GRAVITY URINE AUTO 1.031 (1.002-1.035); SQUAMOUS EPITHELIAL CELL UR AU 4 /HPF (0-6); UROBILINOGEN, URINE AUTO 0.2 mg/dL (0.0-2.0); WBC, URINE AUTO 9 /HPF (0-3)
== END ==
LOC: M SMT 16:49
PROVIDERS: ATTEND Physician Assistant
DX: R39.89 Other symptoms and signs involving the genitourinary system (principal)

== ENCOUNTER → 2023-05-06 | Outpatient (REF) | payer MEDICARE, BC | LOC: M LAB REF 16:41 | PROVIDERS: ATTEND Internal Medicine | DX: E11.40 Type 2 diabetes mellitus with diabetic neuropathy, unspecified (principal) ==

== ENCOUNTER → 2023-06-04 | Outpatient (REF) | payer MEDICARE, BC ==
[2023-06-04 13:27] LABS: INR 1.05; PARTIAL THROMBOPLASTIN TIME 28.5 SECONDS (24.8-34.2); PROTHROMBIN TIME 13.4 SECONDS (12.5-14.5)
== END ==
LOC: M LAB REF 12:00
PROVIDERS: ATTEND Internal Medicine
DX: Z01.818 Encounter for other preprocedural examination (principal); Z79.01 Long term (current) use of anticoagulants

== ENCOUNTER → 2023-07-01 | Outpatient (REF) | payer MEDICARE, BC ==
[~2023-07-01] MED LIST changes: +HYDR-4514 PO; -METH-1164; +METH-1164 PO; +MYRB25TA PO; -OXYB5TAB11 PO; +OXYB5TAB14 PO; +PREG75CA3 PO; +TRAZ-257 PO
[2023-07-01 13:00] LABS: RSV AMPLIFICATION NEGATIVE (NEGATIVE)
== END ==
LOC: M LAB REF 11:51
PROVIDERS: ATTEND Nurse Practitioner Family
DX: R53.83 Other fatigue (principal)

== ENCOUNTER 2023-07-02 11:35 | Inpatient (IN) | payer MEDICARE, BC ==
[~2023-07-02] VITALS: Ht 160 cm; Wt 83.5 kg
[~2023-07-02 11:35] MED LIST changes: -HYDR-4514 PO; -MYRB25TA PO; -PREG75CA3 PO; -TRAZ-257 PO
[2023-07-02] MEDS: NS IV STA (12:43)
[2023-07-02 12:54] LABS: APPEARANCE, URINE CLEAR (CLEAR); BACTERIA, URINE AUTO 1+ (NEGATIVE); BILIRUBIN, URINE AUTO NEGATIVE (NEGATIVE); BLOOD, URINE BLOOD NEGATIVE (NEGATIVE); COLOR, URINE YELLOW (YELLOW); GLUCOSE, URINE (UA) AUTO 3+ mg/dL (NEGATIVE); KETONE, URINE AUTO NEGATIVE (NEGATIVE); LEUKOCYTE ESTERASE, URINE AUTO 1+ (NEGATIVE); NITRITE, URINE AUTO NEGATIVE (NEGATIVE); PROTEIN, URINE AUTO NEGATIVE (NEGATIVE); RBC, URINE AUTO 2 /HPF (0-3); SPECIFIC GRAVITY URINE AUTO 1.029 (1.002-1.035); SQUAMOUS EPITHELIAL CELL UR AU 1 /HPF (0-6); UROBILINOGEN, URINE AUTO 0.2 mg/dL (0.0-2.0); WBC, URINE AUTO 66 /HPF (0-3)
[2023-07-02 12:54] LABS: BASO # 0.1 10^3/uL (0.0-0.2); BASO % 0.4 % (0.0-1.0); EOS # 0.1 10^3/uL (0.0-0.5); EOS % 0.8 % (0.0-3.0); HEMATOCRIT 32.3 % (36.0-47.0); LYMPH # 3.1 10^3/uL (1.5-5.0); LYMPH % 20.4 % (24.0-44.0); MEAN CORPUSCULAR HEMOGLOBIN 30.6 pg (27.0-33.0); MEAN CORPUSCULAR VOLUME 98.8 fl (80.0-96.0); MONO # 1.6 10^3/uL (0.0-0.8); MONO % 10.9 % (2.0-8.0); NEUTROPHILS % 66.9 % (36.0-66.0); PLATELET COUNT, AUTOMATED 350 10^3/uL (150-450); RED BLOOD COUNT 3.27 10^6/uL (4.00-5.40)
[2023-07-02 13:02] LABS: ERYTHROCYTE SEDIMENTATION RATE > 130 mm/hr (0-30)
[2023-07-02 13:10] LABS: INR 1.13; PROTHROMBIN TIME 14.2 SECONDS (12.5-14.5)
[2023-07-02 13:11] LABS: PARTIAL THROMBOPLASTIN TIME 35.6 SECONDS (24.8-34.2)
[2023-07-02 13:26] LABS: PROCALCITONIN 0.21 ng/ml
[2023-07-02 13:33] LABS: CK-MB VALUE MASS < 1.0 NG/ML (<3.6)
[2023-07-02 13:34] LABS: CPK CREATINE PHOSPHOKINASE 34 U/L (34-145); MB/CK RELATIVE INDEX 2.94 (< OR =4)
[2023-07-02 13:35] LABS: ALBUMIN 3.1 G/DL (3.2-5.2); ALKALINE PHOSPHATASE 101 U/L (46-116); ALT/SGPT 16 U/L (7.0-40); AST/SGOT 13 U/L (<34); BILIRUBIN,DIRECT 0.2 MG/DL (<0.4); BILIRUBIN,TOTAL 0.4 MG/DL (0.3-1.2); BLOOD UREA NITROGEN 10 MG/DL (9-23); CALCIUM LEVEL 8.7 MG/DL (8.3-10.6); CARBON DIOXIDE LEVEL 27 MMOL/L (20-31); CHLORIDE LEVEL 103 MMOL/L (98-107); GLOMERULAR FILTRATION RATE > 60.0 (>45); GLUCOSE, FASTING 187 MG/DL (74-106); POTASSIUM SERUM 4.6 MMOL/L (3.5-5.1); SODIUM LEVEL 135 MMOL/L (136-145); TOTAL PROTEIN 7.4 G/DL (5.7-8.2)
[2023-07-02 13:36] LABS: AMYLASE < 20 U/L (30-118)
[2023-07-02] MEDS ORDERED: ISOVUE-370 76% 100ML VIAL As Ordered ONE (13:37)
[2023-07-02] MEDS: cefTRIAXone SOD 2 GM in D5W MINI-BAG PLUS 50 ML IV ONE (14:38)
[2023-07-02] MEDS ORDERED: GLUCAGON INJ 1MG VIAL SC PRN (17:00)
[2023-07-02] MEDS ORDERED: GLUCOSE 4GM CHEW TABLET PO PRN (17:00)
[2023-07-02] MEDS ORDERED: DEXTROSE 50% 50ML SYRINGE IV PRN (17:00)
[2023-07-02 17:04] VITALS: BP 128/39; TEMP 99.9; O2SAT 97
[2023-07-02] MEDS: ACETAMINOPHEN TAB 650MG DOSE (2X325MG) PO PRN (17:42)
[2023-07-02] MEDS ORDERED: HYDR-4514 PO (18:41)
[2023-07-02] MEDS ORDERED: HYDR500C3 PO ×2 (18:41)
[2023-07-02] MEDS: INSULIN LISPRO (NovoLOG) PER UNIT SC SCH ×2 (18:43→20:28)
[2023-07-02] MEDS ORDERED: METH-1164 PO (18:45)
[2023-07-02] MEDS ORDERED: FAMO40TA3 PO (18:59)
[2023-07-02] MEDS ORDERED: TRAZ-257 PO (18:59)
[2023-07-02] MEDS ORDERED: MYRB25TA PO (18:59)
[2023-07-02] MEDS ORDERED: PREG75CA3 PO (18:59)
[2023-07-02] MEDS ORDERED: HOME MED LIST COMPLETE! XX SCH (19:05)
[2023-07-02] MEDS ORDERED: PERCOCET 5MG/325MG TAB PO PRN (19:05)
[2023-07-02 20:05] VITALS: BP 121/52; TEMP 99.5; O2SAT 91
[2023-07-02] MEDS: SIMVASTATIN 20 MG TAB PO SCH (20:34)
[2023-07-02] MEDS: methocarbamoL 500 MG TAB PO SCH (20:34)
[2023-07-02] MEDS: rOPINIRole 1MG TAB PO SCH (20:34)
[2023-07-02] MEDS: FAMOTIDINE 20 MG TAB PO SCH (20:34)
[2023-07-02] MEDS: CelecoXIB (CeleBREX) 100 MG CAP PO SCH (20:34)
[2023-07-02] MEDS: PREGABALIN 75 MG CAP(LYRICA) PO SCH (20:34)
[2023-07-02] MEDS: MONTELUKAST 10 MG TAB PO SCH (20:34)
[2023-07-02] MEDS: HYDROXYUREA 500 MG CAP PO SCH (20:34)
[2023-07-02] MEDS: OMEPRAZOLE 20MG CAP PO SCH (20:35)
[2023-07-02] MEDS: traZODone 100 MG TAB PO SCH (20:35)
[2023-07-02] MEDS: NORCO, ANEXSIA 5/325MG TABLET (HYDROcodone/ACETAMINOPHEN) PO PRN (20:38)
[2023-07-02] MEDS: SYMBICORT 160/4.5MCG INHALER 6GM INH SCH (23:07)
[2023-07-03 04:45] VITALS: BP 121/52; TEMP 99.3; O2SAT 95
[2023-07-03 07:01] LABS: BASO % 0.3 % (0.0-1.0); EOS # 0.2 10^3/uL (0.0-0.5); EOS % 1.1 % (0.0-3.0); HEMATOCRIT 30.4 % (36.0-47.0); HEMOGLOBIN 9.5 g/dl (12.0-15.5); LYMPH # 2.3 10^3/uL (1.5-5.0); LYMPH % 15.4 % (24.0-44.0); MEAN CORPUSCULAR HEMOGLOBIN 31.3 pg (27.0-33.0); MEAN CORPUSCULAR HGB CONC 31.3 g/dl (32.0-36.5); MONO # 2.4 10^3/uL (0.0-0.8); MONO % 16.4 % (2.0-8.0); NEUTROPHILS # 9.8 10^3/uL (1.5-8.5); NEUTROPHILS % 66.2 % (36.0-66.0); PLATELET COUNT, AUTOMATED 284 10^3/uL (150-450); RED BLOOD COUNT 3.04 10^6/uL (4.00-5.40); WHITE BLOOD COUNT 14.8 10^3/uL (4.0-10.0)
[2023-07-03 07:18] LABS: BLOOD UREA NITROGEN 9 MG/DL (9-23); CALCIUM LEVEL 8.3 MG/DL (8.3-10.6); CARBON DIOXIDE LEVEL 27 MMOL/L (20-31); CHLORIDE LEVEL 104 MMOL/L (98-107); CREATININE FOR GFR 0.46 MG/DL (0.55-1.30); GLOMERULAR FILTRATION RATE > 60.0 (>45); GLUCOSE, FASTING 134 MG/DL (74-106); POTASSIUM SERUM 4.2 MMOL/L (3.5-5.1); SODIUM LEVEL 136 MMOL/L (136-145)
[2023-07-03] MEDS: cefTRIAXone SOD 2 GM in D5W MINI-BAG PLUS 50 ML IV SCH (13:39)
[2023-07-03 14:10] VITALS: BP 117/48; TEMP 97.7; O2SAT 91
[2023-07-03 22:00] VITALS: BP 139/48; TEMP 100.2; TEMP 101.1; O2SAT 94
[2023-07-03 23:00] VITALS: TEMP 99.1
[2023-07-04 06:08] VITALS: BP 141/63; TEMP 97.8; O2SAT 95
[2023-07-04 06:27] LABS: BASO # 0.1 10^3/uL (0.0-0.2); BASO % 0.4 % (0.0-1.0); EOS # 0.3 10^3/uL (0.0-0.5); EOS % 2.2 % (0.0-3.0); HEMATOCRIT 30.1 % (36.0-47.0); HEMOGLOBIN 9.3 g/dl (12.0-15.5); LYMPH # 2.5 10^3/uL (1.5-5.0); LYMPH % 18.4 % (24.0-44.0); MEAN CORPUSCULAR HEMOGLOBIN 30.6 pg (27.0-33.0); MEAN CORPUSCULAR HGB CONC 30.9 g/dl (32.0-36.5); MONO # 2.1 10^3/uL (0.0-0.8); MONO % 15.1 % (2.0-8.0); NEUTROPHILS # 8.7 10^3/uL (1.5-8.5); PLATELET COUNT, AUTOMATED 230 10^3/uL (150-450); RED BLOOD COUNT 3.04 10^6/uL (4.00-5.40); WHITE BLOOD COUNT 13.7 10^3/uL (4.0-10.0)
[2023-07-04] MEDS: ERTAPENEM SODIUM 1 GM in NS MINI-BAG PLUS 50 ML IV SCH (06:31)
[2023-07-04 06:55] LABS: BLOOD UREA NITROGEN 8 MG/DL (9-23); CALCIUM LEVEL 8.2 MG/DL (8.3-10.6); CARBON DIOXIDE LEVEL 26 MMOL/L (20-31); CHLORIDE LEVEL 104 MMOL/L (98-107); CREATININE FOR GFR 0.45 MG/DL (0.55-1.30); GLOMERULAR FILTRATION RATE > 60.0 (>45); GLUCOSE, FASTING 282 MG/DL (74-106); SODIUM LEVEL 135 MMOL/L (136-145)
[2023-07-04] MEDS: LEVEMIR (INSULIN DETEMIR) 1 UNITS/0.01ML SC SCH (11:01)
[2023-07-04 14:00] VITALS: BP 130/68; TEMP 97.9; O2SAT 98
[2023-07-04 21:29] VITALS: BP 147/78; TEMP 98.2; O2SAT 95
[2023-07-05 06:01] VITALS: BP 125/62; TEMP 97.8; O2SAT 94
[2023-07-05 06:57] LABS: BASO # 0.1 10^3/uL (0.0-0.2); BASO % 0.4 % (0.0-1.0); EOS # 0.4 10^3/uL (0.0-0.5); EOS % 2.7 % (0.0-3.0); HEMATOCRIT 32.8 % (36.0-47.0); LYMPH # 3.3 10^3/uL (1.5-5.0); LYMPH % 22.9 % (24.0-44.0); MEAN CORPUSCULAR HEMOGLOBIN 30.7 pg (27.0-33.0); MEAN CORPUSCULAR HGB CONC 30.5 g/dl (32.0-36.5); MEAN CORPUSCULAR VOLUME 100.6 fl (80.0-96.0); MONO # 1.9 10^3/uL (0.0-0.8); NEUTROPHILS # 8.5 10^3/uL (1.5-8.5); NEUTROPHILS % 59.8 % (36.0-66.0); PLATELET COUNT, AUTOMATED 220 10^3/uL (150-450); RED BLOOD COUNT 3.26 10^6/uL (4.00-5.40); WHITE BLOOD COUNT 14.3 10^3/uL (4.0-10.0)
[2023-07-05 07:20] LABS: BLOOD UREA NITROGEN 9 MG/DL (9-23); CALCIUM LEVEL 8.6 MG/DL (8.3-10.6); CARBON DIOXIDE LEVEL 26 MMOL/L (20-31); CHLORIDE LEVEL 103 MMOL/L (98-107); CREATININE FOR GFR 0.46 MG/DL (0.55-1.30); GLOMERULAR FILTRATION RATE > 60.0 (>45); GLUCOSE, FASTING 180 MG/DL (74-106); POTASSIUM SERUM 3.9 MMOL/L (3.5-5.1); SODIUM LEVEL 137 MMOL/L (136-145)
[2023-07-05 14:00] VITALS: BP 127/63; TEMP 98; O2SAT 99
[2023-07-05 21:00] VITALS: BP 128/62; TEMP 98.1; O2SAT 98
[2023-07-06 04:39] VITALS: BP 149/68; O2SAT 99
[2023-07-06 06:21] LABS: BASO # 0.1 10^3/uL (0.0-0.2); BASO % 0.4 % (0.0-1.0); EOS # 0.4 10^3/uL (0.0-0.5); EOS % 3.2 % (0.0-3.0); HEMATOCRIT 30.5 % (36.0-47.0); HEMOGLOBIN 9.4 g/dl (12.0-15.5); LYMPH # 2.9 10^3/uL (1.5-5.0); LYMPH % 24.3 % (24.0-44.0); MEAN CORPUSCULAR HEMOGLOBIN 30.5 pg (27.0-33.0); MEAN CORPUSCULAR HGB CONC 30.8 g/dl (32.0-36.5); MONO # 1.4 10^3/uL (0.0-0.8); MONO % 11.4 % (2.0-8.0); NEUTROPHILS # 7.2 10^3/uL (1.5-8.5); NEUTROPHILS % 59.8 % (36.0-66.0); PLATELET COUNT, AUTOMATED 212 10^3/uL (150-450); RED BLOOD COUNT 3.08 10^6/uL (4.00-5.40)
[2023-07-06 06:34] LABS: BLOOD UREA NITROGEN 8 MG/DL (9-23); CALCIUM LEVEL 8.3 MG/DL (8.3-10.6); CARBON DIOXIDE LEVEL 25 MMOL/L (20-31); CHLORIDE LEVEL 106 MMOL/L (98-107); CREATININE FOR GFR 0.44 MG/DL (0.55-1.30); GLOMERULAR FILTRATION RATE > 60.0 (>45); GLUCOSE, FASTING 172 MG/DL (74-106); POTASSIUM SERUM 4.2 MMOL/L (3.5-5.1); SODIUM LEVEL 137 MMOL/L (136-145)
[2023-07-06 14:00] VITALS: BP 118/59; TEMP 97.9; O2SAT 96
[2023-07-06 21:06] VITALS: BP 141/61; TEMP 97.9; O2SAT 96
[2023-07-07 05:25] VITALS: BP 134/50; TEMP 97.6; O2SAT 96
[2023-07-07 06:08] LABS: BASO # 0.1 10^3/uL (0.0-0.2); BASO % 0.4 % (0.0-1.0); EOS # 0.3 10^3/uL (0.0-0.5); EOS % 2.6 % (0.0-3.0); HEMATOCRIT 33.1 % (36.0-47.0); LYMPH # 3.6 10^3/uL (1.5-5.0); LYMPH % 27.5 % (24.0-44.0); MEAN CORPUSCULAR HEMOGLOBIN 29.9 pg (27.0-33.0); MEAN CORPUSCULAR HGB CONC 30.2 g/dl (32.0-36.5); MEAN CORPUSCULAR VOLUME 99.1 fl (80.0-96.0); MONO # 1.1 10^3/uL (0.0-0.8); MONO % 8.1 % (2.0-8.0); NEUTROPHILS # 7.8 10^3/uL (1.5-8.5); NEUTROPHILS % 60.5 % (36.0-66.0); PLATELET COUNT, AUTOMATED 252 10^3/uL (150-450); RED BLOOD COUNT 3.34 10^6/uL (4.00-5.40); WHITE BLOOD COUNT 12.9 10^3/uL (4.0-10.0)
[2023-07-07 06:33] LABS: BLOOD UREA NITROGEN 13 MG/DL (9-23); CALCIUM LEVEL 8.8 MG/DL (8.3-10.6); CARBON DIOXIDE LEVEL 26 MMOL/L (20-31); CHLORIDE LEVEL 105 MMOL/L (98-107); CREATININE FOR GFR 0.44 MG/DL (0.55-1.30); GLOMERULAR FILTRATION RATE > 60.0 (>45); GLUCOSE, FASTING 162 MG/DL (74-106); POTASSIUM SERUM 4.4 MMOL/L (3.5-5.1); SODIUM LEVEL 138 MMOL/L (136-145)
[2023-07-07 14:00] VITALS: BP 111/60; TEMP 96.8; O2SAT 95
[2023-07-07 20:35] VITALS: BP 124/64; TEMP 97.9; O2SAT 95
[2023-07-08 05:00] VITALS: BP 143/65; TEMP 97.7; O2SAT 94
[2023-07-08 05:53] LABS: BASO # 0.1 10^3/uL (0.0-0.2); BASO % 0.4 % (0.0-1.0); EOS # 0.3 10^3/uL (0.0-0.5); EOS % 2.5 % (0.0-3.0); HEMATOCRIT 33.5 % (36.0-47.0); HEMOGLOBIN 10.3 g/dl (12.0-15.5); LYMPH # 3.7 10^3/uL (1.5-5.0); LYMPH % 30.9 % (24.0-44.0); MEAN CORPUSCULAR HEMOGLOBIN 30.9 pg (27.0-33.0); MEAN CORPUSCULAR HGB CONC 30.7 g/dl (32.0-36.5); MEAN CORPUSCULAR VOLUME 100.6 fl (80.0-96.0); MONO # 1.1 10^3/uL (0.0-0.8); NEUTROPHILS # 6.8 10^3/uL (1.5-8.5); NEUTROPHILS % 56.3 % (36.0-66.0); RED BLOOD COUNT 3.33 10^6/uL (4.00-5.40)
[2023-07-08 06:01] LABS: PLATELET COUNT, AUTOMATED 357 10^3/uL (150-450)
[2023-07-08 06:20] LABS: BLOOD UREA NITROGEN 13 MG/DL (9-23); CALCIUM LEVEL 8.6 MG/DL (8.3-10.6); CARBON DIOXIDE LEVEL 30 MMOL/L (20-31); CHLORIDE LEVEL 105 MMOL/L (98-107); CREATININE FOR GFR 0.53 MG/DL (0.55-1.30); GLOMERULAR FILTRATION RATE > 60.0 (>45); GLUCOSE, FASTING 166 MG/DL (74-106); POTASSIUM SERUM 4.4 MMOL/L (3.5-5.1); SODIUM LEVEL 137 MMOL/L (136-145)
[2023-07-08] MEDS ORDERED: INSUHUMDS SC (09:02)
[2023-07-08] MEDS ORDERED: TOUJ1.2I SC (09:02)
[2023-07-08] MEDS: FOSFOMYCIN TROMETHAMINE 3 GM POWDER PACKET (MONUROL) PO SCH (09:14)
[2023-07-08] MEDS: ERTAPENEM SODIUM 1 GM in NS MINI-BAG PLUS 50 ML IV ONE (09:16)
[2023-07-13] MEDS ORDERED: HYDR500C3 PO (09:25)
== END 2023-07-08 10:58 | disposition home or self-care (01) | DRG 698 ==
LOC: M ED 11:35 → EEVIPCON 16:00 → M ED INP 16:00 → M MSPAV 16:57
PROVIDERS: ADMIT Internal Medicine Nephrology; ATTEND Internal Medicine Nephrology
DX: T83.511A Infection and inflammatory reaction due to indwelling urethral catheter, initial encounter (principal); A41.9 Sepsis, unspecified organism; D84.9 Immunodeficiency, unspecified; N39.0 Urinary tract infection, site not specified; E11.42 Type 2 diabetes mellitus with diabetic polyneuropathy; I10 Essential (primary) hypertension; B96.20 Unspecified Escherichia coli [E. coli] as the cause of diseases classified elsewhere; E78.5 Hyperlipidemia, unspecified; D47.3 Essential (hemorrhagic) thrombocythemia; J45.909 Unspecified asthma, uncomplicated; N39.41 Urge incontinence; E66.9 Obesity, unspecified; N28.1 Cyst of kidney, acquired; K21.9 Gastro-esophageal reflux disease without esophagitis; K22.70 Barrett's esophagus without dysplasia; G25.81 Restless legs syndrome; M54.50 Low back pain, unspecified; G89.29 Other chronic pain; Z79.891 Long term (current) use of opiate analgesic; Z90.79 Acquired absence of other genital organ(s); Z90.49 Acquired absence of other specified parts of digestive tract; Z79.82 Long term (current) use of aspirin; Z79.4 Long term (current) use of insulin; Z79.899 Other long term (current) drug therapy; Z88.1 Allergy status to other antibiotic agents; Z88.8 Allergy status to other drugs, medicaments and biological substances; Z11.52 Encounter for screening for COVID-19

== ENCOUNTER → 2023-09-29 | Outpatient (REF) | payer MEDICARE, BC ==
[~2023-09-29] MED LIST changes: +CALTTAB6 PO; +CRAN500C11 PO; -CVS500CA5 PO; +ESOM40CA35; +HYDR-4514 PO; +INSU100I24; +MYRB25TA PO; +OXYB10TA23; -POTA10CA60 PO; +POTA10CA70 PO; +PREG75CA3 PO; +TRAZ-257 PO
[2023-09-29 10:50] LABS: APPEARANCE, URINE CLOUDY (CLEAR); BACTERIA, URINE AUTO 3+ (NEGATIVE); BILIRUBIN, URINE AUTO NEGATIVE (NEGATIVE); BLOOD, URINE BLOOD NEGATIVE (NEGATIVE); COLOR, URINE YELLOW (YELLOW); GLUCOSE, URINE (UA) AUTO 3+ mg/dL (NEGATIVE); KETONE, URINE AUTO NEGATIVE (NEGATIVE); LEUKOCYTE ESTERASE, URINE AUTO 3+ (NEGATIVE); NITRITE, URINE AUTO POSITIVE (NEGATIVE); PROTEIN, URINE AUTO NEGATIVE (NEGATIVE); RBC, URINE AUTO 2 /HPF (0-3); SPECIFIC GRAVITY URINE AUTO 1.014 (1.002-1.035); SQUAMOUS EPITHELIAL CELL UR AU 2 /HPF (0-6); UROBILINOGEN, URINE AUTO 0.2 mg/dL (0.0-2.0); WBC, URINE AUTO TNTC /HPF (0-3)
== END ==
LOC: M SMT 09:45
PROVIDERS: ATTEND Physician Assistant
DX: N32.81 Overactive bladder (principal); Z79.899 Other long term (current) drug therapy

== ENCOUNTER → 2023-10-06 | Outpatient (CLI) | payer MEDICARE, BC | LOC: M WUC 14:06 | PROVIDERS: ATTEND Nurse Practitioner Family | DX: M19.031 Primary osteoarthritis, right wrist (principal) ==

== ENCOUNTER → 2023-10-17 | Outpatient (REF) | payer MEDICARE, BC | LOC: M LAB REF 13:51 | PROVIDERS: ATTEND Internal Medicine Gastroenterology | DX: R19.7 Diarrhea, unspecified (principal); A04.72 Enterocolitis due to Clostridium difficile, not specified as recurrent ==

== ENCOUNTER → 2023-10-21 | Outpatient (REF) | payer MEDICARE, BC | LOC: M LAB REF 16:19 | PROVIDERS: ATTEND Internal Medicine | DX: E11.40 Type 2 diabetes mellitus with diabetic neuropathy, unspecified (principal) ==

== ENCOUNTER → 2023-11-05 | Outpatient (REF) | payer MEDICARE, BC ==
[~2023-11-05] MED LIST changes: +VANC250C3 PO
== END ==
LOC: M LAB REF 09:31
PROVIDERS: ATTEND Internal Medicine Gastroenterology
DX: R19.7 Diarrhea, unspecified (principal)

== ENCOUNTER → 2023-11-18 | Outpatient (CLI) | payer MEDICARE, BC ==
[~2023-11-18] MED LIST changes: +GASTROGRAFIN SOLUTION 30ML As Ordered ONE; +ISOVUE-370 76% 100ML VIAL As Ordered ONE
== END ==
LOC: M RAD 14:21
PROVIDERS: ATTEND Internal Medicine Medical Oncology
DX: N28.1 Cyst of kidney, acquired (principal); R91.1 Solitary pulmonary nodule; K76.0 Fatty (change of) liver, not elsewhere classified; N83.291 Other ovarian cyst, right side; K57.30 Diverticulosis of large intestine without perforation or abscess without bleeding
CPT/HCPCS: 71260; 74177; Q9963; Q9967

== ENCOUNTER 2024-01-04 12:07 | Day surgery (SDC) | payer MEDICARE, BC ==
[~2024-01-04] VITALS: Ht 160 cm; Wt 86.6 kg
[~2024-01-04 12:07] MED LIST changes: -GASTROGRAFIN SOLUTION 30ML As Ordered ONE; -ISOVUE-370 76% 100ML VIAL As Ordered ONE
[2024-01-04] MEDS ORDERED: propofoL 200 MG/20 ML VIAL As Ordered ONE (12:15)
[2024-01-04] MEDS: NS 1,000 ML IV ONE (12:33)
[2024-01-04] MEDS ORDERED: ATROPINE SULF 0.4 MG/ML 1ML VIAL As Ordered ONE (13:08)
[2024-01-04 13:23] VITALS: TEMP 97.7
[2024-01-04 13:39] VITALS: BP 168/74; O2SAT 95
== END 2024-01-04 13:51 | disposition home or self-care (01) ==
LOC: M OPP 12:07
PROVIDERS: ATTEND Internal Medicine Gastroenterology
DX: D12.6 Benign neoplasm of colon, unspecified (principal); K64.0 First degree hemorrhoids; K57.30 Diverticulosis of large intestine without perforation or abscess without bleeding; D50.9 Iron deficiency anemia, unspecified; K44.9 Diaphragmatic hernia without obstruction or gangrene; K21.00 Gastro-esophageal reflux disease with esophagitis, without bleeding; E11.9 Type 2 diabetes mellitus without complications; G47.33 Obstructive sleep apnea (adult) (pediatric); Z99.89 Dependence on other enabling machines and devices; Z87.891 Personal history of nicotine dependence; Z79.02 Long term (current) use of antithrombotics/antiplatelets; Z79.1 Long term (current) use of non-steroidal anti-inflammatories (NSAID); Z79.2 Long term (current) use of antibiotics; Z79.4 Long term (current) use of insulin; Z79.51 Long term (current) use of inhaled steroids; Z79.891 Long term (current) use of opiate analgesic; Z79.899 Other long term (current) drug therapy; Z88.1 Allergy status to other antibiotic agents
CPT/HCPCS: 43239; 45380; 88305; J0461

== ENCOUNTER → 2024-01-26 | Outpatient (REF) | payer MEDICARE, BC | LOC: M LAB REF 16:40 | PROVIDERS: ATTEND Internal Medicine | DX: E11.21 Type 2 diabetes mellitus with diabetic nephropathy (principal) ==

== ENCOUNTER → 2024-02-11 | Outpatient (CLI) | payer MEDICARE, BC ==
[~2024-02-11] MED LIST changes: -CRAN500C11 PO; +CVS500CA5 PO; +GABA-1172 PO; -GABA-282 PO; +VANC250C10 PO; -VANC250C3 PO
== END ==
LOC: M WHC 09:02
PROVIDERS: ATTEND Dietitian, Registered
DX: Z12.31 Encounter for screening mammogram for malignant neoplasm of breast (principal); R92.313 Mammographic fatty tissue density, bilateral breasts

== ENCOUNTER → 2024-03-18 | Outpatient (CLI) | payer MEDICARE, BC ==
[~2024-03-18] MED LIST changes: -VANC250C10 PO; +VANC250C12 PO
[2024-03-18 13:56] LABS: BLOOD UREA NITROGEN 17 MG/DL (9-23); CALCIUM LEVEL 9.9 MG/DL (8.3-10.6); CARBON DIOXIDE LEVEL 31 MMOL/L (20-31); CHLORIDE LEVEL 100 MMOL/L (98-107); CREATININE FOR GFR 0.54 MG/DL (0.55-1.30); GLOMERULAR FILTRATION RATE > 60.0 (>45); GLUCOSE, FASTING 327 MG/DL (74-106); POTASSIUM SERUM 5.1 MMOL/L (3.5-5.1); SODIUM LEVEL 135 MMOL/L (136-145)
== END ==
LOC: M PLALAB 09:31
PROVIDERS: ATTEND Physician Assistant
DX: D35.02 Benign neoplasm of left adrenal gland (principal)

== ENCOUNTER → 2024-03-22 | Outpatient (CLI) | payer MEDICARE, BC ==
[~2024-03-22] MED LIST changes: +ISOVUE-370 76% 100ML VIAL ONE
== END ==
LOC: M PLAIMG 13:57
PROVIDERS: ATTEND Physician Assistant
DX: N28.1 Cyst of kidney, acquired (principal); D35.02 Benign neoplasm of left adrenal gland

== ENCOUNTER → 2024-04-20 | Outpatient (REF) | payer MEDICARE, BC ==
[~2024-04-20] MED LIST changes: -ISOVUE-370 76% 100ML VIAL ONE
== END ==
LOC: M LAB REF 12:46
PROVIDERS: ATTEND Internal Medicine
DX: E11.21 Type 2 diabetes mellitus with diabetic nephropathy (principal)

== ENCOUNTER → 2024-04-29 | Outpatient (CLI) | payer MEDICARE, BC | LOC: M WUC 14:02 | PROVIDERS: ATTEND Internal Medicine | DX: R05.9 Cough, unspecified (principal) ==

== ENCOUNTER → 2024-05-26 | Outpatient (CLI) | payer MEDICARE, BC ==
[~2024-05-26] MED LIST changes: +VIBE75TA PO
== END ==
LOC: M RAD 12:44
PROVIDERS: ATTEND Internal Medicine
DX: J32.0 Chronic maxillary sinusitis (principal)

== ENCOUNTER → 2024-05-27 | Outpatient (REF) | payer MEDICARE, BC | LOC: M LAB REF 11:48 | PROVIDERS: ATTEND Internal Medicine | DX: R19.7 Diarrhea, unspecified (principal) ==

== ENCOUNTER → 2024-06-08 | Outpatient (CLI) | payer MEDICARE, BC | LOC: M RAD 11:01 | PROVIDERS: ATTEND Nurse Practitioner Adult Health | DX: R91.8 Other nonspecific abnormal finding of lung field (principal) ==

== ENCOUNTER → 2024-07-05 | Outpatient (REF) | payer MEDICARE, BC | LOC: M LAB REF 09:52 | PROVIDERS: ATTEND Internal Medicine Gastroenterology | DX: A04.72 Enterocolitis due to Clostridium difficile, not specified as recurrent (principal) ==

== ENCOUNTER → 2024-07-20 | Outpatient (REF) | payer MEDICARE, BC | LOC: M LAB REF 14:57 | PROVIDERS: ATTEND Internal Medicine | DX: E11.21 Type 2 diabetes mellitus with diabetic nephropathy (principal); E11.65 Type 2 diabetes mellitus with hyperglycemia ==

== ENCOUNTER 2024-08-01 12:04 | Day surgery (SDC) | payer MEDICARE, BC ==
[~2024-08-01] VITALS: Ht 160 cm; Wt 92.1 kg
[~2024-08-01 12:04] MED LIST changes: +LOPE1CAP5 PO; +QUES4POW PO
[2024-08-01] MEDS ORDERED: propofoL 200 MG/20 ML VIAL As Ordered ONE (13:55)
[2024-08-01] MEDS ORDERED: LIDOCAINE 2% 100MG/5ML SDV (FOR ANES.) As Ordered ONE (13:55)
[2024-08-01 13:56] VITALS: TEMP 97.8
[2024-08-01 14:19] VITALS: BP 174/74; O2SAT 97
== END 2024-08-01 14:31 | disposition home or self-care (01) ==
LOC: M OPP 12:04
PROVIDERS: ATTEND Internal Medicine Gastroenterology
DX: K22.89 Other specified disease of esophagus (principal); K44.9 Diaphragmatic hernia without obstruction or gangrene; K31.89 Other diseases of stomach and duodenum; K30 Functional dyspepsia; E11.9 Type 2 diabetes mellitus without complications; Z88.1 Allergy status to other antibiotic agents; Z79.4 Long term (current) use of insulin; Z79.51 Long term (current) use of inhaled steroids; I10 Essential (primary) hypertension

== ENCOUNTER → 2024-11-22 | Outpatient (REF) | payer MEDICARE, BC ==
[~2024-11-22] MED LIST changes: +AMMO12CR4 TOP; -AMMO12CR7 TOP
== END ==
LOC: M LAB REF 15:00
PROVIDERS: ATTEND Internal Medicine
DX: E11.21 Type 2 diabetes mellitus with diabetic nephropathy (principal); E11.65 Type 2 diabetes mellitus with hyperglycemia

== ENCOUNTER → 2024-12-23 | Outpatient (CLI) | payer MEDICARE, BC ==
[~2024-12-23] MED LIST changes: +ISOVUE-370 76% 100 ML VIAL As Ordered ONE
== END ==
LOC: M RAD 11:00
PROVIDERS: ATTEND Internal Medicine
DX: E27.0 Other adrenocortical overactivity (principal); R91.8 Other nonspecific abnormal finding of lung field; D17.71 Benign lipomatous neoplasm of kidney
CPT/HCPCS: 71250; 74170; Q9967

== ENCOUNTER → 2024-12-23 | Outpatient (CLI) | payer MEDICARE, BC ==
[~2024-12-23] MED LIST changes: -ISOVUE-370 76% 100 ML VIAL As Ordered ONE
== END ==
LOC: M RAD 10:55
PROVIDERS: ATTEND Nurse Practitioner Adult Health
DX: R91.8 Other nonspecific abnormal finding of lung field (principal); E27.0 Other adrenocortical overactivity; D17.71 Benign lipomatous neoplasm of kidney

== ENCOUNTER → 2025-01-10 | Outpatient (CLI) | payer MEDICARE, BC | LOC: M PLARAD 11:49 | PROVIDERS: ATTEND Nurse Practitioner Adult Health | DX: R91.8 Other nonspecific abnormal finding of lung field (principal); Z53.9 Procedure and treatment not carried out, unspecified reason ==

== ENCOUNTER → 2025-01-17 | Outpatient (CLI) | payer MEDICARE, BC | LOC: M PLARAD 10:20 | PROVIDERS: ATTEND Nurse Practitioner Adult Health | DX: R91.8 Other nonspecific abnormal finding of lung field (principal) | CPT/HCPCS: 78815; A9552 ==

== ENCOUNTER → 2025-01-19 | Outpatient (REF) | payer MEDICARE, BC ==
[~2025-01-19] MED LIST changes: +BENZ-18 PO; +INDA1.253 PO; +MULTTAB86 PO; +OLME20TA50 PO
== END ==
LOC: M LAB REF 12:08
PROVIDERS: ATTEND Internal Medicine
DX: E11.21 Type 2 diabetes mellitus with diabetic nephropathy (principal)

== ENCOUNTER 2025-02-01 07:03 | Day surgery (SDC) | payer MEDICARE, BC ==
[~2025-02-01] VITALS: Ht 160 cm; Wt 91.4 kg
[2025-02-01] MEDS ORDERED: GLUCAGON INJ 1 MG VIAL SC PRN (07:30)
[2025-02-01] MEDS ORDERED: GLUCOSE 4 GM CHEW PO PRN (07:30)
[2025-02-01] MEDS ORDERED: LIDOCAINE 1% SDV 5 ML VIAL SC PRN (07:30)
[2025-02-01] MEDS ORDERED: DEXTROSE 50% 50 ML SYRINGE IV PRN (07:30)
[2025-02-01] MEDS: LR 1,000 ML IV SCH (07:55)
[2025-02-01] MEDS: INSULIN LISPRO (NovoLOG) PER UNIT SC PRN (08:01)
[2025-02-01] MEDS ORDERED: ROCURONIUM BROMIDE 50MG/5ML VIAL As Ordered ONE (08:21)
[2025-02-01] MEDS ORDERED: MIDAZOLAM INJ 2 MG/2 ML VIAL As Ordered ONE (08:21)
[2025-02-01] MEDS ORDERED: LIDOCAINE 2% 100 MG/5 ML SDV (FOR ANES.) As Ordered ONE (08:21)
[2025-02-01] MEDS: ALBUTEROL SULFATE 2.5 MG/0.5 ML INH CONCENTRATE NEB SOLN INH ONE (08:30)
[2025-02-01] MEDS: LIDOCAINE PRES-FREE 2% 10 ML AMP INH ONE (08:30)
[2025-02-01] MEDS: CETACAINE SPRAY 5 GM As Ordered ONE (09:10)
[2025-02-01] MEDS ORDERED: SUGAMMADEX SODIUM 200 MG/2 ML VIAL As Ordered ONE (09:17)
[2025-02-01] MEDS ORDERED: dexAMETHasone 4 MG/ML 1 ML VIAL As Ordered ONE (09:17)
[2025-02-01] MEDS ORDERED: ACETAMINOPHEN 1000MG/100ML IV BAG As Ordered ONE (09:17)
[2025-02-01] MEDS ORDERED: ONDANSETRON 4MG 2ML VIAL As Ordered ONE (09:17)
[2025-02-01] MEDS ORDERED: LR 1,000 ML IV SCH (09:55)
[2025-02-01] MEDS ORDERED: ONDANSETRON 4MG 2ML VIAL IV PRN (09:55)
[2025-02-01] MEDS: LR 500 ML IV ONE (10:30)
[2025-02-01] MEDS: EPINEPHrine 1 MG/10 ML SYRINGE 1.5IN As Ordered ONE (10:46)
[2025-02-01] MEDS: THROMBIN 5,000 UNITS VIAL As Ordered ONE (10:46)
[2025-02-01 11:40] VITALS: BP 113/54; TEMP 97; O2SAT 95
[2025-02-03] MEDS ORDERED: ALBU2.5V10 (07:29)
== END 2025-02-01 12:00 | disposition home or self-care (01) ==
LOC: M SDC 07:03
PROVIDERS: ATTEND Internal Medicine Critical Care Medicine
DX: C77.1 Secondary and unspecified malignant neoplasm of intrathoracic lymph nodes (principal); C80.1 Malignant (primary) neoplasm, unspecified; E11.9 Type 2 diabetes mellitus without complications; I10 Essential (primary) hypertension; E78.00 Pure hypercholesterolemia, unspecified; K76.0 Fatty (change of) liver, not elsewhere classified; K21.9 Gastro-esophageal reflux disease without esophagitis; Z79.899 Other long term (current) drug therapy; Z79.4 Long term (current) use of insulin; Z90.711 Acquired absence of uterus with remaining cervical stump; Z88.1 Allergy status to other antibiotic agents; Z87.891 Personal history of nicotine dependence
CPT/HCPCS: 31652; 71045; 88173; 88305; J0131; J1100; J1815; J2250; J2405; J3010

== ENCOUNTER → 2025-02-06 | Outpatient (CLI) | payer MEDICARE, BC ==
[~2025-02-06] MED LIST changes: +ALBU2.5V10; +PROHANCE 279.3MG/ML 15ML VIAL ONE; +PROHANCE 279.3MG/ML 5ML VIAL ONE
== END ==
LOC: M PLAIMG 12:17
PROVIDERS: ATTEND Internal Medicine Medical Oncology
DX: D75.838 Other thrombocytosis (principal)
CPT/HCPCS: 70553; A9576

== ENCOUNTER 2025-02-14 14:53 | Emergency (ER) | payer MEDICARE, BC ==
[~2025-02-14] VITALS: Ht 160 cm; Wt 92.4 kg
[~2025-02-14 14:53] MED LIST changes: -PROHANCE 279.3MG/ML 15ML VIAL ONE; -PROHANCE 279.3MG/ML 5ML VIAL ONE
[2025-02-14 16:58] LABS: PLATELET COUNT, AUTOMATED 503 10^3/uL (150-450)
[2025-02-14 17:14] LABS: ALT/SGPT 23 U/L (7.0-40); AST/SGOT 23 U/L (<34); CALCIUM LEVEL 9.0 MG/DL (8.3-10.6); CARBON DIOXIDE LEVEL 28 MMOL/L (20-31); CHLORIDE LEVEL 97 MMOL/L (98-107); CREATININE FOR GFR 0.56 MG/DL (0.55-1.30); GLOMERULAR FILTRATION RATE > 90.0 (>45); POTASSIUM SERUM 4.3 MMOL/L (3.5-5.1); SODIUM LEVEL 135 MMOL/L (136-145)
[2025-02-14 17:19] LABS: INR 0.96
[2025-02-14] MEDS: KETOROLAC 30 MG/ML 1 ML VIAL IV ONE (18:02)
[2025-02-14] MEDS ORDERED: ISOVUE-370 76% 100 ML VIAL As Ordered ONE (18:08)
[2025-02-14 19:26] VITALS: BP 131/66; TEMP 96.8; O2SAT 97
[2025-02-21] MEDS ORDERED: BRAF75CA PO (14:11)
[2025-02-21] MEDS ORDERED: MEKT15TA PO (14:11)
[2025-02-23] MEDS ORDERED: ONDA-83 PO (16:13)
== END 2025-02-14 19:38 | disposition home or self-care (01) ==
LOC: M ED 14:53
DX: R19.01 Right upper quadrant abdominal swelling, mass and lump (principal); E11.9 Type 2 diabetes mellitus without complications; I10 Essential (primary) hypertension; J44.9 Chronic obstructive pulmonary disease, unspecified; C34.90 Malignant neoplasm of unspecified part of unspecified bronchus or lung; Z86.718 Personal history of other venous thrombosis and embolism; Z87.891 Personal history of nicotine dependence; D35.02 Benign neoplasm of left adrenal gland
CPT/HCPCS: 74177; 80048; 80076; 85027; 85610; 85730; 96374; 99284; G0463; J1885; Q9967

== ENCOUNTER → 2025-02-17 | Outpatient (CLI) | payer MEDICARE, BC ==
[~2025-02-17] MED LIST changes: +BRAF75CA PO; +MEKT15TA PO
== END ==
LOC: M CARPUL 11:04
PROVIDERS: ATTEND Internal Medicine
DX: R94.31 Abnormal electrocardiogram [ECG] [EKG] (principal); I34.0 Nonrheumatic mitral (valve) insufficiency; I36.1 Nonrheumatic tricuspid (valve) insufficiency; I37.1 Nonrheumatic pulmonary valve insufficiency

== ENCOUNTER → 2025-02-21 | Outpatient (CLI) | payer MEDICARE, BC ==
[~2025-02-21] MED LIST changes: +BENZ200C70 PO; +DIPH1TAB81 PO; +MORP30TASA PO; +OLAN1TAB16 PO; +ONDA-284 PO; +OXYC10TA12 PO; +OXYC20TA2 PO; +PROC5TAB81 PO
[2025-02-21 08:25] VITALS: TEMP 98
[2025-02-21 08:42] LABS: BASO # 0.1 10^3/uL (0.0-0.2); BASO % 0.6 % (0.0-1.0); EOS # 0.4 10^3/uL (0.0-0.5); EOS % 3.0 % (0.0-3.0); LYMPH # 3.2 10^3/uL (1.5-5.0); LYMPH % 22.6 % (24.0-44.0); MONO # 1.3 10^3/uL (0.0-0.8); MONO % 9.4 % (2.0-8.0); NEUTROPHILS # 9.1 10^3/uL (1.5-8.5); NEUTROPHILS % 64.0 % (36.0-66.0); PLATELET COUNT, AUTOMATED 472 10^3/uL (150-450)
[2025-02-21 09:21] VITALS: BP 111/59; O2SAT 95
[2025-02-21] MEDS: LIDOCAINE 1% MDV 20 ML VIAL SC SCH (09:45)
== END ==
LOC: M IRPRO 08:17
PROVIDERS: ATTEND Internal Medicine Medical Oncology
DX: D47.3 Essential (hemorrhagic) thrombocythemia (principal)
CPT/HCPCS: 36415; 38221; 77012; 85025; 88300; 88305; 88311; 88313; G0463

== ENCOUNTER → 2025-03-01 | Outpatient (CLI) | payer MEDICARE, BC ==
[~2025-03-01] VITALS: Ht 160 cm; Wt 90.3 kg
[~2025-03-01] MED LIST changes: -DIPH1TAB81 PO; -MORP30TASA PO; -OLAN1TAB16 PO; -OXYC20TA2 PO; +PROC5TAB57 PO; -PROC5TAB81 PO
[2025-03-01 13:06] VITALS: BP 138/76; O2SAT 96
== END ==
LOC: M PAL 12:48
PROVIDERS: ATTEND Physician Assistant
DX: Z51.5 Encounter for palliative care (principal); Z66 Do not resuscitate; C34.90 Malignant neoplasm of unspecified part of unspecified bronchus or lung; Z92.21 Personal history of antineoplastic chemotherapy; Z79.891 Long term (current) use of opiate analgesic; Z79.899 Other long term (current) drug therapy; Z88.1 Allergy status to other antibiotic agents; Z88.6 Allergy status to analgesic agent; Z79.85 Long-term (current) use of injectable non-insulin antidiabetic drugs; Z79.02 Long term (current) use of antithrombotics/antiplatelets

== ENCOUNTER → 2025-03-15 | Outpatient (CLI) | payer MEDICARE, BC ==
[~2025-03-15] VITALS: Ht 160 cm; Wt 89.1 kg
[~2025-03-15] MED LIST changes: +DIPH1TAB81 PO; +MORP30TASA PO; +OLAN1TAB16 PO; +OXYC20TA2 PO; -PROC5TAB57 PO; +PROC5TAB81 PO
[2025-03-15 08:34] VITALS: BP 134/86; O2SAT 96
== END ==
LOC: M PAL 08:19
PROVIDERS: ATTEND Physician Assistant
DX: Z51.5 Encounter for palliative care (principal); Z66 Do not resuscitate; C34.90 Malignant neoplasm of unspecified part of unspecified bronchus or lung; Z92.21 Personal history of antineoplastic chemotherapy; Z79.891 Long term (current) use of opiate analgesic; Z88.6 Allergy status to analgesic agent; Z79.899 Other long term (current) drug therapy; Z79.83 Long term (current) use of bisphosphonates; Z79.02 Long term (current) use of antithrombotics/antiplatelets

== ENCOUNTER → 2025-03-24 | Outpatient (REF) | payer MEDICARE, BC ==
[~2025-03-24] MED LIST changes: +LIDO15SO8 PO
== END ==
LOC: M LAB REF 19:00
PROVIDERS: ATTEND Internal Medicine Medical Oncology
DX: C34.12 Malignant neoplasm of upper lobe, left bronchus or lung (principal); R19.7 Diarrhea, unspecified; A04.0 Enteropathogenic Escherichia coli infection

== ENCOUNTER → 2025-03-29 | Outpatient (CLI) | payer MEDICARE, BC ==
[~2025-03-29] MED LIST changes: -LIDO15SO8 PO
== END ==
LOC: M ONCR 09:26
PROVIDERS: ATTEND General Practice
DX: C34.12 Malignant neoplasm of upper lobe, left bronchus or lung (principal); R59.0 Localized enlarged lymph nodes; Z79.4 Long term (current) use of insulin; Z79.899 Other long term (current) drug therapy; Z87.891 Personal history of nicotine dependence; Z88.1 Allergy status to other antibiotic agents; Z90.79 Acquired absence of other genital organ(s)

== ENCOUNTER → 2025-03-29 | Outpatient (CLI) | payer MEDICARE, BC ==
[~2025-03-29] VITALS: Ht 160 cm; Wt 90.9 kg
[2025-03-29 09:07] VITALS: BP 147/78; O2SAT 95
== END ==
LOC: M PAL 08:45
PROVIDERS: ATTEND Physician Assistant
DX: Z51.5 Encounter for palliative care (principal); Z66 Do not resuscitate; C34.90 Malignant neoplasm of unspecified part of unspecified bronchus or lung; Z92.21 Personal history of antineoplastic chemotherapy; Z79.891 Long term (current) use of opiate analgesic; Z79.899 Other long term (current) drug therapy; Z88.6 Allergy status to analgesic agent; Z88.2 Allergy status to sulfonamides; Z79.02 Long term (current) use of antithrombotics/antiplatelets
CPT/HCPCS: G0463 ×2

== ENCOUNTER 2025-03-30 07:51 | Outpatient (RCR) | payer MEDICARE, BC | END 2025-04-09 | LOC: M ONCR 07:51 | PROVIDERS: ATTEND General Practice | DX: Z51.0 Encounter for antineoplastic radiation therapy (principal); C34.12 Malignant neoplasm of upper lobe, left bronchus or lung ==

== ENCOUNTER → 2025-03-31 | Outpatient (CLI) | payer MEDICARE, BC ==
[~2025-03-31] MED LIST changes: +MIDAZOLAM INJ 2 MG/2 ML VIAL IV PRN; +NS (Normal Saline) 0.9% 1,000 ML IV SCH
[2025-03-31 08:40] VITALS: TEMP 97.5
[2025-03-31 10:50] VITALS: BP 131/67; O2SAT 95
[2025-03-31] MEDS: LIDOCAINE 1% MDV 20 ML VIAL SC SCH (11:48)
== END ==
LOC: M IRPRO 08:37
PROVIDERS: ATTEND Radiology Diagnostic Radiology
DX: R59.0 Localized enlarged lymph nodes (principal)
CPT/HCPCS: 49180; 77012; 88305; 99152; 99153; J2250; J3010

== ENCOUNTER 2025-04-21 13:32 | Outpatient (RCR) | payer MEDICARE, BC ==
[~2025-04-21 13:32] MED LIST changes: -MIDAZOLAM INJ 2 MG/2 ML VIAL IV PRN; -NS (Normal Saline) 0.9% 1,000 ML IV SCH
[2025-04-28] MEDS ORDERED: LIDO15SO8 PO (08:33)
== END 2025-05-10 ==
LOC: M ONCR 13:32
PROVIDERS: ATTEND General Practice
DX: Z51.0 Encounter for antineoplastic radiation therapy (principal); C34.12 Malignant neoplasm of upper lobe, left bronchus or lung